=== PATIENT | female | born 1945 | race Caucasian/White ===

== ENCOUNTER 2017-03-03 21:40 | Inpatient (IN) | payer MEDICARE, OTHER ==
[~2017-03-03] VITALS: Ht 174 cm; Wt 68.8 kg
[~2017-03-03 21:40] MED LIST: FLUT16SP2 NS; HYDR12.55 PO; LEVO75TA4 PO; LOSA100T29 PO; PANT40TA3 PO; PRAV80TA2 PO; TRAZ-115 PO
[2017-03-03] MEDS ORDERED: 0.9% Sodium Chloride 1,000 ML IV ONE (21:44)
[2017-03-03 21:45] VITALS: BP 127/73; PULSE 87; RESP 18; O2SAT 97
[2017-03-03 21:54] LABS: BASOPHILS % (AUTO) 0.7 % (0-3); EOSINOPHILS % (AUTO) 5.4 % (0-5); MONOCYTES % (AUTO) 8.9 % (4-12); Mean Corpuscular Hemoglobin 27.5 pg (27.0-35.0); Mean Corpuscular Volume 88.6 fL (81-100); NEUTROPHILS % (AUTO) 66.6 % (40-74); Platelet Count 332 bil/L (150-400)
--- NOTE | 2017-03-03 21:59 | ED.REPORT ---
HPI-Trauma Minor / Fall Date of Service Mar 03, 2017 ED Provider: Katie Zavaleta MD Patient is a 71 year old female with a history of hypertension, high cholesterol and multiple other concerns who presents to the ED via EMS due to left hip pain status post mechanical ground level fall at home just prior to arrival when her walker slipped out from under her. Pain has been progressively worsening since the fall. She denies numbness, weakness, head trauma, or loss of consciousness.The patient denies taking any blood thinners. Nursing Notes Stated Complaint: GLF LEFT HIP PAIN Nursing Notes Reviewed: Yes Allergies: Coded Allergies: benazepril (Verified Allergy, Severe, 09/22/09) valsartan (Verified Allergy, Unknown, 03/03/17) verapamil (Verified Allergy, Unknown, 11/30/14) Scheduled Alendronate (Binosto) 70 Mg Tablet.eff 70 MG PO WEEKLY Takes on Sundays Amlodipine (Amlodipine) 5 Mg Tablet 5 MG PO QAM Gabapentin (Gabapentin) 300 Mg Capsule 300 MG PO HS Levothyroxine (Levothyroxine) 50 Mcg Tablet 50 MCG PO QAM Losartan Potassium (Losartan Potassium) 100 Mg Tablet 100 MG PO DAILY Potassium Chloride ER (Klor-Con 10) 10 Meq Tablet 10 MEQ PO DAILY Pravastatin (Pravastatin) 80 Mg Tablet 80 MG PO HS Tizanidine (Tizanidine) 2 Mg Capsule 4 MG PO HS Scheduled PRN Pantoprazole DR (Pantoprazole DR) 40 Mg Tablet.dr 40 MG PO DAILY PRN PRN For Dyspepsia or Heartburn Trazodone (Trazodone) 50 Mg Tablet 25 MG PO HS PRN PRN For Insomnia General Time Seen by MD: 21:42 Chief Complaint Fall, Other (Left Hip Pain) Hx Obtained From: Patient, EMS Arrived By: Ambulance Onset Occurred: Just prior to arrival Symptom Duration: Since onset Caused by: Fall on ground Context: Occurred at: Home injury Location: Hip left Leg left (upper femur) Quality: Painful Severity: Current: Moderate Severity: Maximum: Moderate Associated with: Denies: Headache, Loss of consciousness, Neck pain, Numb extremities, Weak extremity Pertinent Negative: Pt denies other symptoms Recent Healthcare: No recent hospitalization Similar Sx Previous: No Past Medical History Past Medical History hypertension high cholesterol eczema hypothyroid cataracts hiatal hernia Past Surgical History carotid artery surgery cardiac cath bilateral masectomy for breast nodules T&A Reports: Cholecystectomy, Hysterectomy Smoking History Current Every Day Smoker Ambulatory Status Independent Review of Systems Constitutional: Denies: Weakness - generalized Respiratory: Denies: Non-productive cough, Shortness of breath Musculoskeletal: Reports: Joint pain (Left Hip), Denies: Back pain, Extremity pain, Lumbar pain, Neck pain, Thoracic pain Neurologic: Denies: Change LOC, Headache, Numbness, Syncope Complete sys rev & neg: except as marked. Physical Exam Initial Vital Signs Vital Signs (First) Date Time Temp Pulse Resp B/P Pulse Ox O2 Delivery O2 Flow Rate FiO2 03/03/17 21:45 36.5 87 18 127/73 97 Room Air Initial VS: Reviewed General/Constitutional: Awake, Alert Neck: Atraumatic, Supple, Full range of motion Head / Eyes: Atraumatic, Normocephalic, PERRL, EOMI ENT: Atraumatic, Airway patent, Mucous membranes moist Respiratory / Chest: Atraumatic, Breath sounds NL, Breath sounds = bilat, No respiratory distress Cardiovascular: Heart rate NL, Regular rhythm, Heart sounds NL Abdomen: Atraumatic, Soft, Non-tender Back: Atraumatic, Full range of motion Upper Extremity / MS: Atraumatic, Full range of motion Lower Extremity / Pelvis / MS: Neurologic intact, Vascular intact Left Hip: Positive: Leg externally rotated, Leg shortened, ROM reduced... ( secondary to pain), Tenderness present... 2+ DP PT pulse Skin: Atraumatic, Warm, Dry Interpretation & Diagnostics Lab Results Interpretation Result Diagram: 03/04/17 0158 03/04/17 0158 Test 03/03/17 21:50 Prothrombin Time 11.4sec (8.1-12.5) Prothromb Time International Ratio 1.06ratio Activated Partial Thromboplast Time 26.6sec (22.8-33.0) Total Bilirubin 0.4mg/dL (0.0-1.2) Aspartate Amino Transf (AST/SGOT) 26U/L (0-50) Alanine Aminotransferase (ALT/SGPT) 13U/L (0-32) Alkaline Phosphatase 100U/L (25-165) Total Protein 7.9g/dL (6.4-8.4) Albumin 4.2g/dL (3.4-5.0) Hold He Top Tube Received (Received) ECG Interpretation ECG Interpretation: rate 72 T wave inversion aVR and V1 no ST elevation poor baseline Time: 22:46 Interpreted by: ED physician Normal ECG Interpretation: Normal sinus rhythm X-Ray Chest Interpretation Chest Xray Interpretation: no acute cardiopulmonary disease View: Portable, 1 view Interpretation / Wet Read by: Wet read ED physician X-Ray Interpretation Xray Interpretation: Impacted fracture of the left femoral neck. X-Ray Ordered: Pelvis, Hip left Interpretation / Wet Read by: Wet read ED physician Xray Interpretation: no fracture X-Ray Ordered: Femur right Interpretation / Wet Read by: Wet read ED physician Re-Eval/Medical Decision Med Decision/Clinical Course 71-year-old female with past medical history of hypertension and hyperlipidemia brought in by EMS with left hip pain after mechanical fall without head straight. Differential diagnosis includes but is not limited to hip fracture versus pelvic fracture versus femur fracture versus dislocation. Patient's x- rays concerning for femoral neck fracture. I discussed the case with orthopedics Dr. Rush and have admitted the patient to the hospitalist. She will be nothing by mouth after midnight and seen by orthopedics in the morning. Patient's labs are remarkable for baseline anemia, mild renal insufficiency, and no urinary tract infection. She is amenable to admission Source of Hx: Old records Re-Evaluation/Progress : Time of Eval: 23:00 Re-Evaluation/Progress Note: Rechecked patient. Discussed lab results and plan for admittance. The patient understands and agrees to admittance. Consultation #1: Referral / Consult Name: John Rush MD Consulted With: Orthopedic Call Returned at: 22:57 Low Pressure Boiler Operator: Will see patient Note: Consult with Dr. Rush, orthopedic, who agrees to see the patient in the morning. Consultation #2: Referral / Consult Name: Donald Iglesias MD Consulted With: Hospitalist Call Returned at: 23:00 Low Pressure Boiler Operator: Agrees with eval, Agrees with plan, Accepts admit Counseled Regarding: Diagnosis, Lab results, Need for admission Discharge & Departure Impression: Primary Impression: Fractured femoral neck Encounter type: initial encounter Laterality: left Disposition: ADMITTED TO HOSPITAL Discharge Condition All VS Reviewed: Yes Condition: Stable Referrals: Omar Hwang MD (PCP) Scribe Attestation Portions of this note were transcribed by Letty Singleton and Marcel Cha. IDr. Zavaleta personally performed the history, physical exam and medical decision- making; I reviewed and confirmed the accuracy of the information in the transcribed note. Signed by: Letty Singleton and Briseida Montejo, 03/03/17 and 00:02 copies to: Omar Hwang MD, Rebecca A MD Mar 03, 2017 21:59 Char Singleton Mar 03, 2017 22:53 MARCEL CHA Mar 04, 2017 00:03 X-Ray Chest Interpretation Chest Xray Interpretation: no acute cardiopulmonary disease View: Portable, 1 view Interpretation / Wet Read by: Wet read ED physician X-Ray Interpretation Xray Interpretation: Impacted fracture of the left femoral neck. X-Ray Ordered: Pelvis, Hip left Interpretation / Wet Read by: Wet read ED physician Xray Interpretation: no fracture X-Ray Ordered: Femur right Interpretation / Wet Read by: Wet read ED physician Re-Eval/Medical Decision Source of Hx: Old records Re-Evaluation/Progress : Time of Eval: 23:00 Re-Evaluation/Progress Note: Rechecked patient. Discussed lab results and plan for admittance. The patient understands and agrees to admittance. Consultation #1: Referral / Consult Name: John Rush MD Consulted With: Orthopedic Call Returned at: 22:57 Low Pressure Boiler Operator: Will see patient Note: Consult with Dr. Rush, orthopedic, who agrees to see the patient in the morning. Consultation #2: Referral / Consult Name: Donald Iglesias MD Consulted With: Hospitalist Call Returned at: 23:00 Low Pressure Boiler Operator: Agrees with eval, Agrees with plan, Accepts admit Counseled Regarding: Diagnosis, Lab results, Need for admission Discharge & Departure Impression: Primary Impression: Fractured femoral neck Encounter type: initial encounter Laterality: left Disposition: ADMITTED TO HOSPITAL Discharge Condition All VS Reviewed: Yes Condition: Stable Referrals: Omar Hwang MD (PCP) Briseida Attestation Portions of this note were transcribed by Letty Cha. IDr. Zavaleta personally performed the history, physical exam and medical decision- making; I reviewed and confirmed the accuracy of the information in the transcribed note. Signed by: Briseida Rosales, 03/03/17 and 00:02 copies to: Omar Hwang MD, Rebecca A MD Mar 03, 2017 21:59 Char Singleton Mar 03, 2017 22:53 MARCEL CHA Mar 04, 2017 00:03
[2017-03-03 22:15] LABS: INR 1.06 ratio
[2017-03-03] MEDS ORDERED: HYDROmorphone 1 mg/mL Inj IVPUSH ONE (22:45)
[2017-03-03] MEDS ORDERED: Ondansetron 2 mg/mL 2 mL Inj IVPUSH ONE ×2 (22:45→23:40)
[2017-03-03 23:00] VITALS: BP 109/46; PULSE 73; RESP 18; O2SAT 98
[2017-03-03] MEDS ORDERED: Alum-Mag Hydrox-Simeth 30 mL Suspension PO PRN (23:05)
[2017-03-03] MEDS ORDERED: Ondansetron 2 mg/mL 2 mL Inj IVPUSH PRN (23:05)
[2017-03-04] VITALS: BP 102/50; PULSE 72; RESP 16; O2SAT 97
[2017-03-04] MEDS ORDERED: TIZA2CAP9 PO (00:11)
[2017-03-04] MEDS ORDERED: LEVO50TA6 PO (00:11)
[2017-03-04] MEDS ORDERED: GABA-502 PO (00:11)
[2017-03-04] MEDS ORDERED: AMLO5TAB2 PO (00:11)
[2017-03-04] MEDS ORDERED: ALEN70TA51 PO (00:11)
[2017-03-04] MEDS ORDERED: PANT40TA3 PO (00:11)
[2017-03-04 00:45] VITALS: BP 131/63; PULSE 74; RESP 18; O2SAT 94
[2017-03-04 00:54] LABS: APPEARANCE,URINE CLEAR (CLEAR,HAZY); COLOR,URINE STRAW (YELLOW); OCCULT BLOOD,URINE NEGATIVE (NEGATIVE); UROBILINOGEN,URINE NORMAL (NORMAL)
[2017-03-04 00:56] VITALS: BP 127/48; PULSE 72; RESP 18; O2SAT 100
[2017-03-04] MEDS ORDERED: Alum-Mag Hydrox-Simeth 30 mL Suspension PO PRN (01:05)
[2017-03-04] MEDS ORDERED: Polyethylene Glycol (PEG) 17 Gm Powder PO PRN (01:05)
--- NOTE | 2017-03-04 01:14 | PCM.HPMED ---
Subjective Date of Service Mar 04, 2017 Primary Provider: Admitting Physician: Donald Iglesias MD Primary Care Physician: Susie Lucero MD Attending Physician: Donald Iglesias MD Chief Complaint: fall L hip pain History of Present Illness: 71yo lady with hx of htn, hld, cva, hypothyroidism, hld, intestinal angiodysplasia tripped and fell at home on L side. walks with walker. chronic L sided weakness from previous cva. no LOC. no lightheadedness, chest pain, dsypna. pain in L hip at worst severe improved now with pain medication. has rash on face for 7 weeks. seeing outpt dermatology she says they told her it is combination of eczema and seborrhea. Review of Systems: Positive Review of Symptoms mentioned and elaborated on in HPI. Head: Denies H/A, trauma, loss of consciousness. Eyes: Denies visual loss, diplopia. Ears: Denies: deafness, tinnitis, discharge, pain Nose: Denies discharge, obstruction, epistaxis Mouth: Denies sores, gingival bleeding, jaw pain Neck: Denies stiffness, issues swallowing. Respiratory: Denies dyspnea, cough, sputum. Cardiovascular:Denies CP, palpitations, orthopnea, peripheral edema Gastrointestinal: Denies melena, abd pain, n/v/d Genitourinary: Denies dysuria, discharge. Skin: see hpi Musculoskeletal:see hpi Neuro: Denies new numbness, tingling, weakness. Psyc: Currently denies feelings of anxiety, depression. Allergies Coded Allergies: benazepril (Verified Allergy, Severe, 09/22/09) valsartan (Verified Allergy, Unknown, 03/03/17) verapamil (Verified Allergy, Unknown, 11/30/14) Home Medications see med rec PMH see hpi Surgical History endoscopy, gallbladder, mastectomy Family History denies Social History Hx Alcohol Use: No Hx Substance Use: No Hx Tobacco Use: Yes (occasional ) Smoking Status: Current Every Day Smoker Exam Vital Signs Vital Sign - Last Date Time Temp Pulse Resp B/P Pulse Ox O2 Delivery O2 Flow Rate FiO2 03/04/17 00:56 72 18 127/48 100 Room Air 03/03/17 21:45 36.5 Intake and Output 03/03/17 03/03/17 03/04/17 Cumulative From/Thru 15:00 23:00 07:00 03/03/17 21:45 - 03/03/17 22:34 Intake Total 1000 ml 1000 ml Balance 1000 ml 1000 ml Intake IV Total 1000 ml 1000 ml Exam General: No acute distress. Awake, alert. Head: Normocephalic, atraumatic. Eyes: White sclera. Conjunctiva non-injected. Mouth & Throat: No Bleeding. No erythema, lesions, exudates visualized. Neck: No tender adenopathy. Trachea midline. Respiratory: Clear to auscultation bilaterally. Symmetric chest expansion. Regular work of breathing without use of accessory muscles. Cardiovascular: S1, S2. Regular rate and rhythm without murmurs, rubs or gallops. Pulses 2+ equal bilaterally. Abdomen: Normal bowel sounds x4 quadrants. Soft, non-tender, non-distended. Extremities:tenderness L hip. LLE shortened. Skin: facial erythema most pronounced along cheeks, Neurologic: Awake, alert, oriented x3. 4/5 strength L upper and lower extrem, No new focal deficits. Psychiatric: Appropriate mood and affect. Cooperative. Lab and Diagnostics Result Diagram: 03/03/17214903/03/172149 Assessment & Plan -- L hip fx -- mechanical fall pain control, ivf. orthopedic evaluation in am. -- facial rash obtain outside dermatology records in am. -- htn -- hld -- hx of cva -- hypothroidism -- hld -- hx of gi angiodysplasia medical managment as tolerated -- f/e/n: npo -- dvt prophylaxis: hold for now in case of procedure in am. Dipso: Admit to inpt with expected length of stay > 2 midnights. Donald Iglesias MD Mar 04, 2017 01:14
[2017-03-04] MEDS: Ondansetron 2 mg/mL 2 mL Inj IVPUSH PRN ×2 (01:33→22:43)
[2017-03-04] MEDS: 0.9% Sodium Chloride 1,000 ML IV SCH ×3 (01:33→21:05)
[2017-03-04] MEDS ORDERED: POTA10TA7 PO (01:48)
--- NOTE | 2017-03-04 02:03 | NUR ---
Admission to 1004 Pt arrived alert and fully oriented, moved to bed with slider board. Reports pain 8/10, medicated with modest improvement, ice applied; difficult to find a position for leg which is less painful. IV fluids infusing, freire patent. NPO for expected surgery. [place] alarm engaged for safety. Oriented to room, call light, hospital routines, plan of care; hourly rounding ongoing.
[2017-03-04 02:11] LABS: BASOPHILS % (AUTO) 0.2 % (0-3); EOSINOPHILS % (AUTO) 1.8 % (0-5); MONOCYTES % (AUTO) 7.9 % (4-12); Mean Corpuscular Hemoglobin 27.3 pg (27.0-35.0); Mean Corpuscular Volume 89.7 fL (81-100); NEUTROPHILS % (AUTO) 82.8 % (40-74); Platelet Count 228 bil/L (150-400)
[2017-03-04 02:33] LABS: Magnesium 1.9 mg/dL (1.6-2.6)
[2017-03-04] MEDS: HYDROmorphone 0.5 mg/0.5 mL iSecure Syringe IVPUSH PRN ×4 (03:55→22:21)
--- NOTE | 2017-03-04 05:18 | NUR ---
Pain Pain not well controlled with morphine, changed to Dilaudid with improved pain management. Ice along hip and groin; assisted with repositioning for comfort and skin care. Pt able to move very well, difficult to find a position that relieved severe pain. Hourly rounding ongoing.
[2017-03-04 07:00] VITALS: BP 123/71; PULSE 89; RESP 20; O2SAT 94
[2017-03-04] MEDS ORDERED: HYDROmorphone 1 mg/mL Inj ONE ×2 (12:04→12:07)
[2017-03-04 12:48] VITALS: BP 98/66; PULSE 68; RESP 16; O2SAT 93
--- NOTE | 2017-03-04 14:19 | DRSVH ---
[facility] [address] [place] [address] Echocardiogram Report Name: CLAUDIA RODRIGUEZ Study Date: 03/04/2017 Height: 68 in Hospital Exam Location: [facility] Weight: 151 lb Gender: Female BSA: 1.8 m2 : 1945 Age: 71 yrs BP: 123/71 mmHg Reason For Study: Pre-surgical evaluation Ordering Physician: HOSPITALIST [facility] Performed By: Kiera Moreno Referring Physician: Susie Lucero Interpretation Summary Technically difficult study with limited visualization of the valves and LV. 1) Grossly, normal left ventricular size and systolic function (EF 65-70%). 2) Grossly, mild to moderately dilated right ventricle with normal systolic function. 3) No gross valvular disease. 4) Pulmonary hypertension present, estimated systolic pulmonary pressure of 45mmHg. 5) Compared to the prior echo done 07/27/2011, right ventricle size has increased from normal to mildly to moderately increased on today's study. Procedure: A two-dimensional transthoracic echocardiogram with color flow and Doppler was performed. The exam was technically difficult with limited visualization of cardiac structure and function. The patient was supine during the exam due to left hip fracture and could not follow breathing instructions. Comparison is made with the echocardiogram of 07/27/2011. The patient was in normal sinus rhythm during the exam. Left Ventricle: The left ventricle is grossly normal size. The ejection fraction is estimated to be 65-70%. Left ventricular systolic function is normal. Regional wall motion abnormalities cannot be excluded due to limited visualization. Assessment of diastolic parameters indicates a relaxation abnormality of the left ventricle, consistent with normal filling pressures. Right Ventricle: The right ventricle is mild to moderately dilated. The right ventricular systolic function is normal. Atria: The left atrium is not well visualized. Right atrium not well visualized. Mitral Valve: The mitral valve leaflets appear thickened, but open well. There is no mitral regurgitation noted. Aortic Valve: The aortic valve opens well. The aortic valve is trileaflet. No aortic regurgitation is present. Tricuspid Valve: The tricuspid valve leaflets are thin and pliable. There is mild tricuspid regurgitation. The right ventricular systolic pressure is estimated at 45 mmHg assuming a right atrial pressure of 8 mm Hg. Pulmonic Valve: The pulmonic valve is not well seen, but is grossly normal. There is a trace or physiologic amount of pulmonic regurgitation. Great Vessels: The aortic root is normal size. The ascending aorta is normal in size. The IVC is of normal diameter and collapses less than 50% with a sniff. This suggests a right atrial pressure of 8 mm Hg. Pericardium/ Pleura There is no pericardial effusion. MMode/2D Measurements & Calculations IVSd: 1.0 cm IVC diam: 1.6 cm LVOT diam: 2.0 cm Ao root diam: 2.4 cm Aortic Jxn: 2.0 cm asc Aorta Diam: 2.8 cm Doppler Measurements & Calculations MV E max hu MV E/A: 0.65 TR max hu MV dec time : 39.7 cm/sec Med Peak E' Hu : 301.9 cm/sec : 0.28 sec MV A max hu TR max PG : 60.8 cm/sec E/E' med: 8.6 : 36.5 mmHg MV P1/2t: 81.1 msec MV A dur: 0.13 sec PA V2 max : 81.6 cm/sec PA mean PG PA Accel Time MV P1/2t max hu PA V2 mean : 53.6 cm/sec MVA(P1/2t): 2.7 cm2 Reading Physician:02:18 PM
--- NOTE | 2017-03-04 14:38 | NUR ---
Social Work- Brief Note Data: EMR reviewed. Pt is a 71 year old female admitted 03/03/17 for left hip fracture. Pt to have surgery possibly today or tomorrow. Pt's insurance is [employer] and [employer]. Pt's PCP is Susie Lucero MD. SW attempted to see pt regarding discharge plan, pt was asleep. Pt did not awake to SW repeated attempts to speak with pt. Per chart review, pt resides at home alone. Pt has no DPOA on file, SW to follow up with pt regarding this. SW to follow up with pt regarding discharge plan. Plan: SW to speak with pt regarding discharge plan when pt is awake. KAIT Coto
--- NOTE | 2017-03-04 15:13 | DRSVH ---
PROCEDURE: US BILATERAL DUPLEX DOPPLER IMAGING OF THE CAROTIDS ([id number]) INDICATIONS: carotid stenosis stroke preop TECHNIQUE: Color and pulse Doppler interrogation was performed of both carotid systems, with image documentation and velocity measurements. COMPARISON: None. FINDINGS: All stenosis calculations are based on NASCET criteria. Right side: Brachial blood pressure: Because of an IV the right arm pressure was not obtained. Common carotid artery peak systolic velocity: 72 cm/sec. Internal carotid artery peak systolic velocity: 144 cm/sec is thought to be present but more proximal ly located not be identified. Either a thread of flow is present or this is an incorrect finding. Pre vious study showed lack of flow.. Internal carotid artery end diastolic velocity: 21 cm/sec. External carotid artery peak systolic velocity: 171.7 cm/sec. ICA/CCA peak systolic ratio: 1.7 or nonexistent.. Haji scale imaging description: Prominent irregular plaquing is present Vertebral artery: Flow direction is antegrade. Left side: Brachial blood pressure: 123/71 mm Hg. Common carotid artery peak systolic velocity: 159 cm/sec. Internal carotid artery peak systolic velocity: 319 cm/sec. Internal carotid artery end diastolic velocity: 123 cm/sec. External carotid artery peak systolic velocity: 229 cm/sec. ICA/CCA peak systolic ratio: 2.0. Haji scale imaging description: Moderate atherosclerotic plaquing is present. Percent internal carotid artery stenosis: The percent diameter stenosis is thought to be at the low e nd of the 70% or greater because of the peak systolic and end diastolic velocities.. Vertebral artery: Flow direction is antegrade. * . IMPRESSION: 1. On the left there is thought to be 70% plus stenosis at the origin of the internal carotid artery. 2. Probable occlusion of the internal carotid artery on the right versus possible nonvisualized threa d of flow with downstream antegrade flow the right internal carotid artery. This is felt to be less l ikely than occlusion. Dictated by: Bro Soto M.D. on 03/04/2017 at 14:56 Approved by: Bro Soto M.D. on 03/04/2017 at 15:12
--- NOTE | 2017-03-04 15:16 | DRSVH ---
PROCEDURE: X-RAY PELVIS, ONE OR TWO VIEWS ([id number]) INDICATIONS: fall TECHNIQUE: One view(s) of the pelvis acquired. COMPARISON: None. FINDINGS: Bones: There is an acute fracture of the femoral neck of the left femur with displacement of the dis sally femoral shaft and leg proximally with external rotation. Soft tissues: Visualized bowel gas pattern is normal. No suspicious soft tissue calcifications. IMPRESSION: Transfemoral neck fracture with displacement. Pelvic ring is thought to be intact. Dictated by: Bro Soto M.D. on 03/04/2017 at 15:14 Approved by: Bro Soto M.D. on 03/04/2017 at 15:15
--- NOTE | 2017-03-04 15:17 | DRSVH ---
PROCEDURE: X-RAY CHEST ONE VIEW, PORTABLE ([id number]) INDICATIONS: fall TECHNIQUE: One view of the chest was acquired. COMPARISON: None. FINDINGS: Surgical changes and devices: There are vascular clips in the right side of the neck inferiorly. Card iac monitor leads are seen over the chest. Lungs and pleura: No pleural effusions or pneumothorax. Lungs are clear. Mediastinum: Mediastinal contours appear normal. Heart size is normal. Bones and chest wall: No suspicious bony lesions. Overlying soft tissues appear unremarkable. IMPRESSION: Acute disease is not appreciated an AP supine chest. Dictated by: Bro Soto M.D. on 03/04/2017 at 15:15 Approved by: Bro Soto M.D. on 03/04/2017 at 15:15
--- NOTE | 2017-03-04 15:17 | DRSVH ---
PROCEDURE: X-RAY LEFT FEMUR, TWO VIEWS ([id number]) INDICATIONS: hip pain TECHNIQUE: 2 views of the femur were acquired. COMPARISON: None. FINDINGS: Bones: No fractures or dislocations. No suspicious bony lesions. Soft tissues: No suspicious soft tissue calcifications or masses. IMPRESSION: No fracture of the infratrochanteric region of the left femur is seen. Dictated by: Bro Soto M.D. on 03/04/2017 at 15:15 Approved by: Bro Soto M.D. on 03/04/2017 at 15:16
--- NOTE | 2017-03-04 15:18 | DRSVH ---
PROCEDURE: X-RAY LEFT HIP COMPLETE, MINIMUM TWO VIEWS ([id number]) INDICATIONS: hip pain TECHNIQUE: 2 views of the hip were acquired. COMPARISON: None. FINDINGS: Bones: There is an acute fracture of the left femoral neck with displacement of the leg proximally an d with external rotation. No suspicious bony lesions. The visualized pelvic ring appears intact. Soft tissues: No suspicious soft tissue calcifications or masses. IMPRESSION: Acute femoral neck fracture with displacement. Dictated by: Bro Soto M.D. on 03/04/2017 at 15:16 Approved by: Bro Soto M.D. on 03/04/2017 at 15:17
[2017-03-04] MEDS ORDERED: HYDROmorphone 0.5 mg/0.5 mL iSecure Syringe IVPUSH PRN (15:50)
--- NOTE | 2017-03-04 16:07 | CONS ---
[address] [address] CONSULTATION REPORT PATIENT: CLAUDIA RODRIGUEZ : 1945 MR#: [id number] ADMIT: 03/03/2017 JOB ID: [id number] ORTHOPEDIC INPATIENT CONSULTATION: DATE OF SERVICE: 03/04/2017 CPT CODE: 53840-47, decision for surgery. 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 The patient sustained a displaced left femoral neck fracture. The patient denied any acute shortness of breath or any dizziness prior to her fall. She normally walks with a walker due to chronic low back pain. She has had chronic weakness in the left upper and left lower extremity since her stroke in June 2016 with her left leg being weaker than the left upper extremity but still not a dense hemiplegia. The patient was treated at [facility] [place] in [place] when she had her stroke. Evidently she had significant carotid artery stenosis. She has had a prior carotid endarterectomy eight years ago, but still ended up having a stroke this past year. ALLERGIES: 1. BENAZEPRIL. 2. VALSARTAN. 3. VERAPAMIL. PRIOR SURGERIES: Endoscopy, cholecystectomy and a mastectomy. FAMILY HISTORY: Denies any significant family history. SOCIAL HISTORY: The patient occasionally smokes. She does not drink alcohol. The question is whether she smokes daily or intermittently. REVIEW OF SYSTEMS: HEENT: No headache or blurring of vision. Respiratory: No shortness of breath. Cardiovascular: No chest pain. GI: No acute nausea or vomiting. : No dysuria. Musculoskeletal: Pain in the left hip. Also has chronic weakness left upper and lower extremity and also has chronic low back pain. Psychiatric: No anxiety or depression. Hematologic: No easy bleeding or bruising. Integumentary: Does have evidence for eczema. Additional medical problems include hypercholesterolemia and hiatal hernia as well as cataracts. ADDITIONAL PRIOR SURGERIES: Patient has had carotid artery, cardiac cath, bilateral mastectomy for breast nodules, tonsillectomy, cholecystectomy and hysterectomy. MEDICATIONS: Include alendronate, amlodipine, gabapentin, levothyroxine, losartan, potassium chloride, pravastatin, and tizanidine. PRN medications include trazodone and pantoprazole. PHYSICAL EXAMINATION: 173 cm, 68.8 kg female. Temperature 36.5, pulse is 68, respirations 16, blood pressure runs between 123/71 and 98/66, pulse ox 93-97 on room air. The patient is alert and oriented. She has clinical evidence for eczema particularly over her face. The patient has weakness in the left upper and lower extremity chronically from a prior stroke in June 2016. She is able to move the upper and lower extremity but she does have weakness. Peripheral pulses are intact. Sensory appears to be grossly intact. She has pain with any motion of the left hip. The left leg is shortened and rotated. LABORATORY AND IMAGING DATA: X-rays show that she has a displaced left femoral neck fracture. Labs include a CBC that was initially 7000 white count, hemoglobin 10.6, hematocrit 34.1, repeated on the with a white count 9500, hemoglobin 9.5, hematocrit 31.2. Neutrophils slightly elevated 82.8%, lymphocytes 7.1% slightly low. Platelet count adequate between 332,000 initially and 228,000 repeat today. Chemistry: Sodium 136, potassium 4.4, chloride 104, CO2 20, BUN 20, creatinine 1.15. Random glucose 126, calcium 7.6, magnesium 1.9. PT 11.4, INR 1.06, PTT 26.6. Urinalysis 1.010 specific gravity, clear, 0-5 white cells, and a few bacteria. X-rays of the femur, chest and pelvis were all done. The patient also had a carotid ultrasound Doppler that was done today. The patient has 70% stenosis on the left internal carotid artery. She has probable occlusion of the right internal carotid artery versus possible nonvisualized thread of flow downstream. The patient has significant carotid artery stenosis. Chest x-ray shows no acute disease. IMPRESSION: Displaced left femoral neck fracture. Severe carotid artery stenosis. The patient has 70% occlusion of the left carotid artery and what was thought to be occlusion of the internal carotid artery on the right. PLAN: I will discuss the medical baseline for this patient with Anesthesiology. The goal would be to be able to perform a bipolar hemiarthroplasty on this patient. She certainly is at significant risk for severe cerebral occlusion of her carotid arteries for having another stroke. I have explained the risks for bleeding, infection, pain, and stiffness, possibility for damage to surrounding neurovascular structures, potential for dislocation or fracture below the prostheses or cracking of the femur with placement of the component. The patient is also aware of the potential for DVT, pulmonary emboli, [place], and additional stroke. Surgical consent has been signed. Will proceed with surgery if we have medical clearance on March 05, 2017. ADDITIONAL INFORMATION: After further review of the patient's carotid ultrasound, it does appear that she has complete stenosis on the right internal carotid and 70+ stenosis on the left internal carotid. This certainly puts her at very high risk for having another stroke intraoperatively or perioperatively. I do not feel it is in the patient's best interest to try and proceed with any surgical intervention for prosthetic arthroplasty on that left hip on the weekend with a skeleton crew. I have discussed the case with Anesthesia, and they agree. The daughter has also requested that she would like to have the patient actually transferred to [place] at [facility] where she was treated before. I have contacted. Dr. Adhikari, an internal hospitalist that is taking care of the patient, and indicated the patient's desire and the patient's family's desires for transfer. If he could orchestrate a transfer, that might be the best option for the patient. If not and the patient does stay here, then the earliest any procedure would be done would be on a Monday, and this could be done with Dr. Antonino Ennis, from an orthopedic standpoint, but we would have to have also approval from Anesthesia with the severity of her carotid artery stenosis. Any potential drop in blood pressure intraoperatively could certainly put her at a very high risk for a stroke and particular since the left hip is the fractured hip, and the procedure is usually done with the left hip up and the right hip down, necessitating that the heart be pumping against gravity. Will just have the hospitalist alert [place] and he may also check with anesthesiologist as the anesthesiologist may also need to speak with someone in [place]. The patient will not have anything done surgically here tomorrow. I will contact her daughter and give her this information. Again, I am not sure if anything needs to be done from a vascular standpoint with those severe carotid artery stenosis prior to contemplating any acute prosthetic replacement on the hip. CC: [facility] CC: John Rush M.D. Addenda added by LONA 03/06/17 at 8:18am MTDD
--- NOTE | 2017-03-04 18:17 | NUR ---
Pain/sedation/family Patient with uncontrolled pain this am on 0.5 mg Dilaudid ivp x 2. Dr notified and Dilaudid dose changed so 1 mg Dilaudid given which decreased pain but increased sedation. Patient does awaken to voice and touch , nods head to questions but does fall back to sleep. 02-3l while asleep to maintain sats > 92 . Patients daughter called today and was requesting patient be transferred to [facility] for treatment as they know her history there. I informed hospitalist and orthopedic surgeon of this who have now spoken to daughter regarding this matter as of yet no transfer plan made. Patient had Echo and carotid Doppler done and shows significant stenosis so surgeon has concerns.
[2017-03-04 20:16] VITALS: BP 131/59; PULSE 81; RESP 16; O2SAT 94
[2017-03-05] VITALS (10 sets, daily range): BP systolic 108–166; BP diastolic 56–179; PULSE 65–80; RESP 16–20; O2SAT 93–99
[2017-03-05] MEDS: HYDROmorphone 0.5 mg/0.5 mL iSecure Syringe IVPUSH PRN ×3 (00:26→13:40)
--- NOTE | 2017-03-05 05:00 | NUR ---
Pain management/ IV site Pain unmanageable on 1 mg of Dilaudid, 1.5mg administered after two attempts and patient able to fall asleep with out c/o pain and respirations stable. Original IV site became symptomatic therefore removed, new IV placed in ac of same arm (right). c/o of nausea resolved with single dose of antiemetic.
[2017-03-05] MEDS: 0.9% Sodium Chloride 1,000 ML IV SCH ×3 (07:47→20:52)
[2017-03-05] MEDS ORDERED: Pantoprazole 40 mg ER24 Tablet PO PRN (08:05)
[2017-03-05] MEDS ORDERED: ALENDRONATE 70 MG PO SCH (08:30)
--- NOTE | 2017-03-05 09:19 | PCM.PNORTH ---
Subjective Date of Service: Mar 05, 2017 Visit Information: Reason for Visit Left Hip Fracture Surgery/Surgery Date Post-Op Day # Date of Admission: Mar 03, 2017 at 23:20 Hospital Day # Subjective Patient is complaining of inability to see me and is not sure on which side of the room my voice is coming from. She states she is not having any pain. Nursing has noticed that she complains of swallowing problem. Postop General: No Shortness of Breath, No Chest Pain Objective Exam Objective Patient laying in bed. Patient appears to be confused at times during my exam. Nursing and hospitalist team note a change in mentation and new onset difficulty with swallowing. Vital Signs and I/O Vital Sign - Last Date Time Temp Pulse Resp B/P Pulse Ox O2 Delivery O2 Flow Rate FiO2 03/05/17 08:56 36.6 72 18 118/75 93 Room Air Intake and Output 03/04/17 03/04/17 03/05/17 Cumulative From/Thru 15:00 23:00 07:00 03/03/17 21:45 - 03/05/17 01:01 Intake Total 0 ml 0 ml 1413 ml Output Total 50 ml 400 ml 450 ml Balance -50 ml -400 ml 963 ml Intake Oral 0 ml 0 ml 0 ml IV Total 1413 ml Output Urine Total 50 ml 400 ml 450 ml # Bowel Movements 0 0 Result Diagram: 03/04/17 0158 03/04/17 0158 General Appearance: Cooperative, No Acute Distress Extremities: Distal Pulses Palpable, Warm, No Edema, No Compartment Syndrom Noted, Thigh & Calf Soft/Nontender Postop Sensory Motor: Distal Motor Intact (After much prompting, patient was able to move ankle and toes, however she is weak), Movement in Toes, Distal Sensation Intact, NVI Distally Assessment & Plan Impression Left hip fracture Problems: Plan Patient has a left hip fracture, however, she does not appear to be stable enough for surgery at this time. It is concerning that she is having changes in mentation as well as difficulty swallowing. She was also complaining of loss of vision during my exam. Concern for new onset stroke after having a stroke last year. Hospitalist team is conducting imaging to determine the cause of the mental change. If patient is deemed stable enough to proceed with surgery, she will likely go tomorrow with Dr. Ennis and should be NPO past midnight. Eladia FajardoC Mar 05, 2017 09:19
--- NOTE | 2017-03-05 09:47 | NUR ---
Evaluation completed. Please go to "Notes" then click on "Assessments and Notes" (bottom left corner of screen). Then select appropriate discipline tab on top of screen.
--- NOTE | 2017-03-05 09:59 | NUR ---
Neuro Per noc shift report, pt was somewhat sedated with IV dilaudid. This am, found pt to have change in neuro status. L weakness r/t previous CVA. Speech slurred, gaze and full body slant to right side, needs cues to swallow. Checked with yesterday day shift RN who stated that pt did seem less alert and L side weaker compared to yesterday and that she had no problems eating or drinking yesterday evening. MD is aware and assessed pt at bedside. Stat MRI ordered; nursing grounds crew supervisor aware. NPO pending swallow evaluation. Holding am PO medications per MD verbal order. Continue to monitor closely.
--- NOTE | 2017-03-05 10:17 | PCM.PNMED ---
Subjective Date of Service Mar 05, 2017 Subjective patient acted differently this AM had severe left side neglect, left sided weakness which was different from yesterday followed simple commands, was able to converse, thinks that her left side is weaker than yesterday STAT MRI was ordered Ms. Jess Pelaez was contacted, informed about the situation, still wants to transfer to [place] at [facility] Exam Vital Signs Vital Sign - Last Date Time Temp Pulse Resp B/P Pulse Ox O2 Delivery O2 Flow Rate FiO2 03/05/17 08:56 36.6 72 18 118/75 93 Room Air Intake and Output 03/04/17 03/04/17 03/05/17 Cumulative From/Thru 15:00 23:00 07:00 03/03/17 21:45 - 03/05/17 01:01 Intake Total 0 ml 0 ml 1413 ml Output Total 50 ml 400 ml 450 ml Balance -50 ml -400 ml 963 ml Intake Oral 0 ml 0 ml 0 ml IV Total 1413 ml Output Urine Total 50 ml 400 ml 450 ml # Bowel Movements 0 0 Exam NAD, comfortably laying down on the bed no JVD, MMM, no LAD RRR, nl s1, s2 no mrg CTAB, no w,c S,ND,NT,normoactive BS+ warm, no edema, pulses 2/2 neuro: followed simple commands, asymmetric face,decreased left side nasal fold , left side visual and somatosensory neglect, more Rt 5/5 Lt motor 2/5 IVs and Medications Medications Reviewed: Medications were reviewed in detail Lab and Diagnostics Result Diagram: 03/04/1715703/04/17157 Assessment & Plan acute, active #acute worsening of Left sided deficit, developed 03/04-03/05, strongly suggestive of new onset stroke vs poor perfusion due to relatively low BP, Repeat Carotid US 03/04 showed unchanged from prior findings-70% occ in LCA, 100%RCA, which also suggestive of possibly transient poor perfusion contributed to current s/s. Per Record from [facility], patient was admitted from07/21-08/19/16, had recurrent right frontoparietal multifocal CVA, s/p recurrent CVA in the right alex radiata and right frontal lobe, resultant left hemiparesis and neglect. Patient was recommended to stop all BP meds, recommended aspirin, patient improved subsequently, had rehab course until admission -ordered MR stroke protocol STAT, -strict NPO, -continue neurochecks q1h -will consider aspirin PA, statin po -patient is stable for transfer, [place] [facility] [place] will maximize medical tx, consider consult [place] neuro as needed. #L hip fx, s/p mechanical fall, POA, -tentative plan for surgery by tomorrow per Ortho department. -will likely to delay surgery given acute findings above. #HTN, POA, will hold off BP meds to increase perfusion, it seems that BP meds were held in acute post stroke course then resumed later by PCP. chronic, stable HLD CKD anemia hemochromatosis hx of Crohn's dz, AVM of SB, angiodysplasia, pt did have colonoscopy due to GIB , underwent Argon laser tx at last hospitalization, monitor stools, h/h closely Rt carotid occ chronic back pain osteoporosis depression dispo: likely 3-4more days, pending dvt ppx: SCD diet: NPO Full Code contact: Jess Pelaez, Time spent 35min Rodrigo Adhikari MD Mar 05, 2017 10:17
[2017-03-05] MEDS ORDERED: 0.9% Sodium Chloride 1,000 ML IV ONE (10:25)
[2017-03-05] MEDS ORDERED: Heparin 5,000 Unit/mL Inj SUBQ SCH (12:00)
--- NOTE | 2017-03-05 12:28 | NUR ---
Off unit Pt off unit at this time for MRI
[2017-03-05] MEDS ORDERED: Acetaminophen IV 1,000 MG in IV Premix 1 EACH IV ONE (14:00)
--- NOTE | 2017-03-05 17:51 | NUR ---
Social Work: Initial Assessment Data & Assessment: Survey Crew Chief met with patient and patient's friend, Petra [phone], at bedside to complete initial assessment, SW role reviewed and discharge planning discussed. Patient's PCP is Dr. Susie Sandoval. Patient's insurance is Medicare and [employer]. Patient does not have VA or LTC benifits. Patient re-admit score is two no risk. Patient reported that her NOK/DPOA is her daughter Jess Pelaez. SW requested a copy of patient's Advance Directive/DPOA. Patient lives home alone, but she has a private pay caregiver in the home on TTS from 10-1 that prepares meals, helps with shower and complete chores. Patient reports that she drives as long as she has someone else in the car with her. Patient has had [facility] in the past and stated that is HH is needed at discharge she wants [facility]. Patient has been to [facility] for SNF services. SW will continue to follow patient and rule out if HH will be needed at discharge. Patient's friend Petra, , will provide transport upon discharge. SW will continue to follow. Plan: Home with private pay caregivers and r/o HH. Patient's friend Petra, , will provide transport upon discharge.SW will continue to follow and assist patient throughout stay. Elizabeth Daily LMSW, TEE Addendum: 03/05/17 at 1802 by ELIZABETH DAILY SS Amended: Links added.
[2017-03-05] MEDS ORDERED: 0.9% Sodium Chloride 500 ML IV ONE (18:20)
[2017-03-05] MEDS: Acetaminophen IV 1,000 MG in IV Premix 1 EACH IV PRN (19:22)
[2017-03-05] MEDS: Heparin 5,000 Unit/mL Inj SUBQ SCH (20:56)
--- NOTE | 2017-03-05 22:20 | NUR ---
Transfer to [facility]CC Condition change resulting in MD's request patient be moved to PCC. Patient alert and oriented able to make needs known. requested Pain medication. Report given to RN noted that neuro checks every hr and BP maintained above 140's. Daughter and Patient aware of transfer and agreeable to this plan of action.
[2017-03-06] MEDS: Acetaminophen IV 1,000 MG in IV Premix 1 EACH IV PRN (00:58)
[2017-03-06] MEDS: Heparin 5,000 Unit/mL Inj SUBQ SCH ×3 (01:30→20:15)
--- NOTE | 2017-03-06 01:40 | NUR ---
PAIN/NEUROS Pt to [facility], A&O, left sided weakness unable to move arm or leg at time of exam, GCS 15. Pt c/o mild hip pain on arrival. Pt's pain increased and requested something stronger than IV Tylenol. Pt was given 5mg oxycodone. Pt was resting comfortably and showed no signs of pain, but when reassessed stated she was an 8/10 and the medication did nothing, then fell back asleep. Q1 hr neuro checks show no decline. Pt A&O, able to follow commands, PERRL, mumbled speech and severe left sided weakness.
[2017-03-06 02:52] LABS: BASOPHILS % (AUTO) 0.3 % (0-3); EOSINOPHILS % (AUTO) 5.7 % (0-5); MONOCYTES % (AUTO) 5.3 % (4-12); Mean Corpuscular Hemoglobin 27.3 pg (27.0-35.0); Mean Corpuscular Volume 90.5 fL (81-100); NEUTROPHILS % (AUTO) 79.5 % (40-74); Platelet Count 178 bil/L (150-400)
[2017-03-06 03:44] LABS: Magnesium 1.8 mg/dL (1.6-2.6); Phosphorus 1.9 mg/dL (2.5-4.9)
[2017-03-06 04:25] VITALS: BP 147/83; PULSE 66; RESP 17; O2SAT 96
--- NOTE | 2017-03-06 05:59 | DRSVH ---
PROCEDURE: MRI STROKE PROTOCOL ([id number]) Pre- and post-contrast brain MRI, non-contrast brain MR angiogram, pre- and postcontrast neck MR yusra ogram INDICATIONS: Acute worsening stroke lt sided weak TECHNIQUE: Brain: Noncontrast axial T1 spin echo, axial T2 fast spin echo, sagittal and axial FLAIR, coronal T2 fast spin echo, axial gradient echo, axial diffusion and ADC through the brain. After the administr ation of contrast, axial 3D VIBE of the cranial vasculature and brain. Brain MRA: Non-contrast 3-D time of flight MR angiogram, with multiple fuzrxwg-aovslopww-rcbqpxtvyq (MIP) reformats performed. Neck MRA: Axial and sagittal TruFISP through the neck. Coronal dynamic MR angiogram during administ ration of contrast in the arterial and venous phases, with 3-dimenstional kcufsor-kmqwkxdvt-obekqtsts n (MIP) reformats constructed from subtraction images. COMPARISON: [facility], CR, XR CHEST 1VW (PORTABLE), 03/03/2017, 21:53. [facility] [place] , , STROKE PROTOCOL (PNL), 05/03/2011, 14:08. [facility], US, US CAROTID DPL X DOPPLER BILAT, 03/04/2017, 11:12. FINDINGS: Image quality: Excellent. BRAIN: CSF spaces: Ventricles are normal in size and shape. Basal cisterns are patent. No extra-axial flu id collections. Brain: There are multiple foci of restricted diffusion involving the right frontoparietal lobe, as we ll as the posterior temporal lobe and occipital lobe, consistent with acute cerebral infarct. Foci of restricted diffusion are also seen in the right caudate and globus pallidus, consistent acute/subacu te infarct. There is a small focus of restricted diffusion in the right cerebellar hemisphere consist ent with acute infarct. There is equivocal increased signal on diffusion-weighted images in the left cerebellar hemisphere. No intracranial bleeds or mass effects. Brainstem appears normal. There are multifocal old infarcts in the right paraventricular and deep subcortical white matter. No abnormal intracranial enhancemen t. Skull and face: Calvarial marrow signal is normal. Orbits appear normal. Sinuses: Sinuses and mastoids are clear. BRAIN MR ANGIOGRAM: Anterior circulation: The right intracranial internal carotid is occluded. The left intracranial int ernal carotid artery is patent and normal in size and enhancement. The flow within the paired anteri or cerebral arteries is normal and symmetric. There is diminished flow to the right middle cerebral a rtery. The left middle cerebral artery demonstrates normal caliber and enhancement. The anterior com municating artery is seen. No stenoses, occlusions, or aneurysms. Posterior circulation: The visualized portions of the vertebral arteries demonstrate normal caliber, and join to form a normal appearing basilar artery. The flow within the posterior cerebral arteries is normal and symmetric. No stenoses, occlusions, or aneurysms. NECK MR ANGIOGRAM: Carotids: Great vessels demonstrate a conventional anatomy as they arise from the aortic arch. The origins of the common carotid arteries appear patent. The calibers and courses of both common caroti d arteries are normal. The bifurcation regions appear normal bilaterally. There is complete occlusi on of the right internal carotid artery 7 mm distal to its origin. There is diffuse irregularity in t he proximal right internal carotid artery with approximately 50% stenosis. Posterior circulation: The origins of the vertebral arteries appear patent. More superior portions of both vertebral arteries demonstrate normal course and caliber, and join to form a normal appearing basilar artery. Miscellaneous: Subclavian arteries appear patent. Pre-contrast images through the neck show no soft tissue abnormalities. There are small bilateral pleural effusions, right greater than left. IMPRESSION: BRAIN MRI: 1. Extensive acute cerebral infarction involving the right frontoparietal lobe, as well as posterior temporal lobe and occipital lobe. Foci of acute/subacute infarcts are also seen in the right caudate and globus pallidus. 2. A small acute infarct in the right cerebellum. 3. Multiple old infarcts in the right periventricular and deep subcortical white matter. BRAIN MR ANGIOGRAM: 1. Occlusion of the right internal carotid artery. 2. Diminished flow to the right middle cerebral artery territory compared to the contralateral left s catrachito. 3. Patent vertebrobasilar system. NECK MR ANGIOGRAM: 1. Occlusion of the right internal carotid artery 7 mm above its origin. 2. Approximately 50% stenosis in the proximal right internal carotid artery. 3. Patent vertebral arteries results significant stenosis. The estimate of stenosis included in the report of the imaging study was calculated using the NASCET method Dictated by: Zaid De Leon M.D. on 03/05/2017 at 13:50 Transcribed by: LUCILA on 03/05/2017 at 14:22 Approved by: Zaid De Leon M.D. on 03/05/2017 at 16:11
[2017-03-06] MEDS: 0.9% Sodium Chloride 1,000 ML IV SCH ×2 (07:28→22:49)
[2017-03-06 07:29] VITALS: BP 156/78; PULSE 69; RESP 16; O2SAT 99
--- NOTE | 2017-03-06 09:38 | PCM.PNORTH ---
Subjective Date of Service: Mar 06, 2017 Visit Information: Reason for Visit Left Hip Fracture Surgery/Surgery Date Post-Op Day # Date of Admission: Mar 03, 2017 at 23:20 Hospital Day # 3 Subjective Patient is sitting up in bed. she states she had some bleeding this morning, ? nosebleed. She is not sure. the left hip is comfortable at rest but painful with any movement. Postop General: No Shortness of Breath, No Chest Pain Objective Exam Objective Patient is seen sitting up in bed. She has dried blood around the mouth. Vital Signs and I/O Vital Sign - Last Date Time Temp Pulse Resp B/P Pulse Ox O2 Delivery O2 Flow Rate FiO2 03/06/17 07:29 Supplement Oxygen 03/06/17 07:29 36.8 69 16 156/78 99 2.00 Intake and Output 03/05/17 03/05/17 03/06/17 Cumulative From/Thru 15:00 23:00 07:00 03/03/17 21:45 - 03/06/17 06:23 Intake Total 400 ml 871 ml 1100 ml 3784 ml Output Total 450 ml 400 ml 1125 ml 2425 ml Balance -50 ml 471 ml -25 ml 1359 ml Intake Oral 400 ml 0 ml 0 ml 400 ml IV Total 871 ml 1100 ml 3384 ml Output Urine Total 350 ml 400 ml 1125 ml 2325 ml Emesis 100 ml 100 ml # Bowel Movements 0 0 Lab & Micro Results Laboratory Tests Test 03/06/17 02:30 White Blood Count 7.2th/mm3 (3.8-10.1) Red Blood Count 3.37mil/mm3 (3.90-5.20) Hemoglobin 9.2g/dL (12.0-15.6) Hematocrit 30.5% (35.0-46.0) Mean Corpuscular Volume 90.5fL (81-100) Mean Corpuscular Hemoglobin 27.3pg (27.0-35.0) Mean Corpuscular Hemoglobin Concent 30.2% (32.0-37.0) Red Cell Distribution Width 19.0% (12.3-15.4) Platelet Count 178bil/L (150-400) Neutrophils (%) (Auto) 79.5% (40-74) Lymphocytes (%) (Auto) 8.8% (14-46) Monocytes (%) (Auto) 5.3% (4-12) Eosinophils (%) (Auto) 5.7% (0-5) Basophils (%) (Auto) 0.3% (0-3) Sodium Level 140mEq/L (134-144) Potassium Level 3.6mEq/L (3.5-5.2) Chloride Level 109mEq/L (97-108) Carbon Dioxide Level 17mmol/L (18-29) Blood Urea Nitrogen 22mg/dL (8-27) Creatinine 1.17mg/dL (0.57-1.00) Estimat Glomerular Filtration Rate 65mL/min (>59) Glucose Level 99mg/dL (60-99) Calcium Level 7.4mg/dL (8.5-10.1) Phosphorus Level 1.9mg/dL (2.5-4.9) Magnesium Level 1.8mg/dL (1.6-2.6) Total Bilirubin 0.3mg/dL (0.0-1.2) Aspartate Amino Transf (AST/SGOT) 641U/L (0-50) Alanine Aminotransferase (ALT/SGPT) 649U/L (0-32) Alkaline Phosphatase 123U/L (25-165) Total Protein 5.6g/dL (6.4-8.4) Albumin 3.1g/dL (3.4-5.0) Result Diagram: 03/06/1722903/06/17229 General Appearance: Alert, Oriented X3, Cooperative, No Acute Distress Extremities: Distal Pulses Palpable, No Compartment Syndrom Noted, Tenderness/ Swelling Noted (at left hip as expected) Postop Sensory Motor: No Movement (left lower extremity) Assessment & Plan Impression Left hip fracture Problems: Plan Patient is not a surgical candidate due to recent stroke and significant carotid stenosis Physical therapy: Bed to chair transfers only Weightbearing: Non weight bearing left LE Pain Management: Tylenol VTE Prophylaxis: Sub-Q Heparin (Unfractionated), Other (aspirin) Lyla Rucker PA-C Mar 06, 2017 09:38
[2017-03-06 10:05] VITALS: PULSE 67
--- NOTE | 2017-03-06 11:42 | NUR ---
NUTRITION ASSESSMENT Assess: 71 YO F admitted for left hip fracture. Pt is now now a surgical candidate due to acute stroke. Pt has been on Stimulation diet/poor PO intake X 3 days. PMHX: HTN, HLD, CVA, hypothyroid, intestinal angiodysplasia DIET: Stimulation, no liquid. ST. PO intake: 0-bites. LABS: Cr 1.17, Ca 7.4, Phos 1.9, AST 641, ALT 649, Alb 3.1 MEDICATIONS: Reviewed. GI: No BM noted. SKIN: No issues noted. ANTHROPOMETRICS: Wt: 68.8 kg, BMI 22.7 kg/m2, Admit wt: 68.8 kg. ESTIMATED NEEDS: Calories: 4022-0639 kcal/day (25-30 kcal/kg BW) Protein: 69-83 g/day (1.0-1.2 g/kg BW) NUTRITION DIAGNOSIS: 1) Inadequate oral intake related to decreased ability to consume sufficient energy as evidenced by poor PO intake X 3 days. 2) Chew/Swallow difficulty related to acute stroke as evidenced by need for stimulation diet. INTERVENTION: 1) Diet advancement per speech therapy. 2) If diet unable to advance past stimulation in the next 2-4 days consider nutrition support. MONITOR/EVALUATE: PO intake, diet advance/tolerance, labs, GI, nutrition status. Follow per moderate nutrition risk guidelines.
[2017-03-06 12:07] VITALS: BP 179/81; PULSE 73; RESP 16; O2SAT 100
--- NOTE | 2017-03-06 14:44 | NUR ---
Pt. not available. Surgery in talking with pt and family. Pt. may DC to [facility] but will follow up as able. Alessio Thurman, OTR/L
--- NOTE | 2017-03-06 16:19 | NUR ---
To CT angio pt transported via bed to CT for angiogram. pt alert and oriented. 3L o2. freire draining. telemetry informed. Addendum: 03/06/17 at 1837 by INDRA PUGH RN returned to room 2001 at about 1640. Pt alert and oriented. Neuro unchanged.
[2017-03-06 16:34] VITALS: BP 167/70; PULSE 81; RESP 18; O2SAT 100
--- NOTE | 2017-03-06 16:55 | PCM.PNMED ---
Subjective Date of Service Mar 06, 2017 Subjective Patient laying comfortably in bed. Speech mumbled. Left upper extremity weakness.C/o hip pain. Exam Vital Signs Vital Sign - Last Date Time Temp Pulse Resp B/P Pulse Ox O2 Delivery O2 Flow Rate FiO2 03/06/17 16:34 37.5 81 18 167/70 100 Nasal Cannula 3.00 Intake and Output 03/05/17 03/05/17 03/06/17 Cumulative From/Thru 15:00 23:00 07:00 03/03/17 21:45 - 03/06/17 06:23 Intake Total 400 ml 871 ml 1100 ml 3784 ml Output Total 450 ml 400 ml 1125 ml 2425 ml Balance -50 ml 471 ml -25 ml 1359 ml Intake Oral 400 ml 0 ml 0 ml 400 ml IV Total 871 ml 1100 ml 3384 ml Output Urine Total 350 ml 400 ml 1125 ml 2325 ml Emesis 100 ml 100 ml # Bowel Movements 0 0 Exam General: NAD, comfortably laying down on the bed Neck/HEENT: No JVD, dry mucous membranes, pink periorbital rash Heart: Regular rate and rhythm, no m/r/g/ Lungs: CTAB b/l, no wheezing Abdomen: S,ND,NT,normoactive BS+ Extremities: Warm, no edema, pulses 2/2 Neuro: Follows simple commands, asymmetric face, decreased left side nasal fold , left side visual neglect, no tongue deviation, severe weakness LUE Lab and Diagnostics Result Diagram: 03/06/17 0230 03/06/17 0230 X-Rays, CTs and MRIs MRI STROKE PROTOCOL IMPRESSION: BRAIN MRI: 1. Extensive acute cerebral infarction involving the right frontoparietal lobe, as well as posterior temporal lobe and occipital lobe. Foci of acute/subacute infarcts are also seen in the right caudate and globus pallidus. 2. A small acute infarct in the right cerebellum. 3. Multiple old infarcts in the right periventricular and deep subcortical white matter. BRAIN MR ANGIOGRAM: 1. Occlusion of the right internal carotid artery. 2. Diminished flow to the right middle cerebral artery territory compared to the contralateral left side. 3. Patent vertebrobasilar system. NECK MR ANGIOGRAM: 1. Occlusion of the right internal carotid artery 7 mm above its origin. 2. Approximately 50% stenosis in the proximal right internal carotid artery. 3. Patent vertebral arteries results significant stenosis. Dictated and approved by: Zaid De Leon M.D. on 03/05/2017 at 13:50 ADDENDUM This report includes an Addendum and supersedes previous reports for this exam. IMPRESSION: BRAIN MRI: 1. Extensive acute cerebral infarction involving the right frontoparietal lobe, as well as posterior temporal lobe and occipital lobe. Foci of acute/subacute infarcts are also seen in the right caudate and globus pallidus. 2. A small acute infarct in the right cerebellum. 3. Multiple old infarcts in the right periventricular and deep subcortical white matter. BRAIN MR ANGIOGRAM: 1. Occlusion of the right internal carotid artery. 2. Diminished flow to the right middle cerebral artery territory compared to the contralateral left side. 3. Patent vertebrobasilar system. NECK MR ANGIOGRAM: 1. Occlusion of the right internal carotid artery 7 mm above its origin. 2. Approximately 50% stenosis in the proximal left internal carotid artery. 3. Patent vertebral arteries results significant stenosis. Dictated and approved by: Zaid De Leon M.D. on 03/05/2017 at 13:50 US BILATERAL DUPLEX DOPPLER IMAGING OF THE CAROTIDS IMPRESSION: 1. On the left there is thought to be 70% plus stenosis at the origin of the internal carotid artery. 2. Probable occlusion of the internal carotid artery on the right versus possible nonvisualized thread of flow with downstream antegrade flow the right internal carotid artery. This is felt to be less likely than occlusion. Dictated and approved by: Bro Soto M.D. on 03/04/2017 at 14:56 X-RAY LEFT HIP COMPLETE IMPRESSION: Acute femoral neck fracture with displacement. Dictated and approved by: Bro Soto M.D. on 03/04/2017 at 15:16 Assessment & Plan Gail Pelaez is a 71 -year-old female with history of hypertension, hyperlipidemia, hypothyroidism and intestinal angiodysplasia who is admitted foe left hop fracture and new CVA. Hospital day 3. 1. CVA, acute, not present on admission. Active -acute worsening of Left sided deficit, developed 03/04-03/05, strongly suggestive of new onset stroke vs poor perfusion due to relatively low BP, Repeat Carotid US 03/04 showed unchanged from prior findings--70% occ in LCA, 100%RCA, which also suggestive of possibly transient poor perfusion contributed to current s/ s. Per Record from [place], patient was admitted from07/21-08/19/16, had recurrent right frontoparietal multifocal CVA, s/p recurrent CVA in the right alex radiata and right frontal lobe, resultant left hemiparesis and neglect. Patient was recommended to stop all BP meds, recommended aspirin, patient improved subsequently, had rehab course until admission. -MR stroke revealed extensive acute cerebral infarction involving the right frontoparietal lobe, as well as posterior temporal lobe and occipital lobe and small acute infarct in the right cerebellum. There is occlusion of the right internal carotid artery and diminished flow to the right middle cerebral artery territory compared to the contralateral left side. There is also approximately 50% stenosis in the proximal right internal carotid artery. -Continue Aspirin 325 mg and Pravastatin 80 mg daily -Continue neurochecks every 1-2 hours -case discussed with surgery Dr. Lai Rogers. neurology Dr. De La Torre and at [facility] , no indication for emergent carotid endarterectomy for now per [facility] neurology . Dr Ac will discuss case with intervention neurology and get back to me if elective intervention is indicated prior to her hip surgery.Also tried to transfer to [facility] in [place] per daughter request since she had hospitalization there for her prior stroke for continuity of care, no bed available .will await Dr Ac's rec -Continue telemetry -Neck/head CTA with brain perfusion LICA 60-70 % stenosis,NADYA occluded 2. Left hip fracture s/p mechanical fall, present on admission. Active -tentative plan for surgery by when clinically stable 3. Transaminitis, acute, not present on admission. Active -Etiology unknown -DC Tylenol -Dilaudid PRN -Monitor labs -Abdominal US if not improved #HTN, POA, will hold off BP meds to increase perfusion, it seems that BP meds were held in acute post stroke course then resumed later by PCP. chronic, stable HLD CKD anemia hemochromatosis hx of Crohn's dz, AVM of SB, angiodysplasia, pt did have colonoscopy due to GIB , underwent Argon laser tx at last hospitalization, monitor stools, h/h closely Rt carotid occ chronic back pain osteoporosis depression contact: Jess Pelaez, Pain Evaluation: Adequate Pain Control GI Prophylaxis: Proton Pump Inhibitor VTE Prophylaxis: Sub-Q Heparin (Unfractionated), SCDs, Other (aspirin) Resuscitation Status: CPR: Attempt Resuscitation Attending Statement The patient was seen and examined together with Dr. Batista on 03/06/2017 and I agree with the history, exam and plan as outlined in the note above. Alivia Batista DO Mar 06, 2017 16:55 Chase Hurd MD Mar 07, 2017 06:29
--- NOTE | 2017-03-06 17:14 | DRSVH ---
PROCEDURE: CT ANGIO HEAD AND NECK (P) INDICATIONS: acute cva,estimate right ICA stenosis TECHNIQUE: Pre-contrast 4.5 mm thick sections acquired from the foramen magnum to the vertex. After the adminis tration of intravenous contrast, 1 mm thick sections acquired from the aortic arch through the Telida of Yuan. Post-contrast 4.5 mm thick sections then re-acquired from the foramen magnum to the vert ex. 3-dimensional egifaes-jryxmtlli-vqlaposnby (MIP) and/or volume rendering reformats were acquired of the central intracranial vasculature and neck separately. For radiation dose reduction, the foll owing was used: automated exposure control, adjustment of mA and/or kV according to patient size. COMPARISON: [facility], US, US CAROTID DPLX DOPPLER BILAT, 03/04/2017, 11:12. [facility], MR, MR STROKE PROTOCOL, 03/05/2017, 12:47. FINDINGS: Image quality: Excellent. BRAIN: CSF spaces: Ventricles are normal in size and shape. Basal cisterns are patent. No extra-axial flu id collections. Brain: No midline shift. No intracranial bleeds or masses. Subacute infarcts involving the right fr ontal, right parietal, right temporal and right occipital lobes are stable compared to prior MRI. Sma ll, subacute infarcts involving the right globus pallidus and right caudate head are stable compared to MRI. Skull and face: Calvarium and facial bones appear intact, without suspicious lesions. Orbits appear normal. Sinuses: Sinuses and mastoids are clear. HEAD CT ANGIOGRAPHY: Anterior circulation: Right internal carotid artery is occluded. There is reconstitution of flow in t he supraclinoid segment of the right internal carotid artery presumably via retrograde flow in the ri ght ophthalmic artery. Atherosclerotic calcifications noted in the cavernous and supraclinoid segment s of the left internal carotid artery which caused multifocally focal moderate and high-grade stenose s. The flow within the middle cerebral arteries is normal and symmetric. The anterior communicating artery is seen. No aneurysms are seen. Posterior circulation: Visualized portions of the vertebral arteries demonstrate normal caliber, and join to form a normal appearing basilar artery. Flow within the posterior cerebral arteries is norm al and symmetric. No aneurysms are seen. NECK CT ANGIOGRAPHY: Carotid system: The great vessels demonstrate a conventional anatomy as they arise from the aortic a rch. Atherosclerotic calcifications noted in the origin of the brachiocephalic artery which causes a moderate approximately 50% stenosis of the vessel. Atherosclerotic ossification noted in the origin o f the left common carotid artery which causes high grade, approximately 80% stenosis of the vessel. T he right internal carotid artery is occluded at its origin. Atherosclerotic irregularity noted in the origin of the left internal carotid artery which causes approximately 60-70 % stenosis of the vessel . Posterior circulation: The origins of the vertebral arteries both appear widely patent. The more hines perior extracranial portions of both vertebral arteries also demonstrate normal courses and calibers. They join to form a normal appearing basilar artery. Soft tissues: Visualized neck soft tissues demonstrate no suspicious abnormalities. Small right-side d pleural effusion is noted. Bones: No suspicious bony lesions. Visualized cervical spine appears normally aligned. IMPRESSION: 1. 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 There is reconstitution of flow in the hines praclinoid segment of the right internal carotid artery presumably via retrograde flow in the right o phthalmic artery. 2. Approximately 60-70% stenosis of the origin of the left internal carotid artery. 3. Moderate, approximately 50% stenosis of the origin of the brachiocephalic artery. 4. High-grade, approximately 80% stenosis of the origin of left common carotid artery. 5. No hemodynamically significant stenosis involving the vertebrobasilar system. 6. Multiple, subacute infarcts involving the right frontal lobe, right parietal lobe, right temporal lobe, right occipital lobe, the right caudate head and the right globus pallidus. 7. No intracranial hemorrhage. 8. No significant intracranial mass effect or midline shift. Dictated by: Elyssa Brizuela MD, PhD on 03/06/2017 at 17:00 Approved by: Elyssa Brizuela MD, PhD on 03/06/2017 at 17:13
[2017-03-06 19:50] VITALS: BP 180/77; PULSE 80; RESP 20; O2SAT 95
[2017-03-06] MEDS: HYDROmorphone 1 mg/mL Inj IVPUSH PRN (20:05)
[2017-03-07] VITALS (10 sets, daily range): BP systolic 138–174; BP diastolic 63–89; PULSE 61–80; RESP 15–20; O2SAT 97–100
[2017-03-07 02:04] LABS: BASOPHILS % (AUTO) 0.3 % (0-3); EOSINOPHILS % (AUTO) 6.3 % (0-5); Mean Corpuscular Hemoglobin 27.4 pg (27.0-35.0); Mean Corpuscular Volume 89.2 fL (81-100); NEUTROPHILS % (AUTO) 78.6 % (40-74); Platelet Count 179 bil/L (150-400)
[2017-03-07] MEDS: Heparin 5,000 Unit/mL Inj SUBQ SCH ×3 (03:10→21:07)
[2017-03-07] MEDS: HYDROmorphone 1 mg/mL Inj IVPUSH PRN ×4 (03:18→22:01)
[2017-03-07 03:22] LABS: Magnesium 1.7 mg/dL (1.6-2.6); Phosphorus 1.8 mg/dL (2.5-4.9)
--- NOTE | 2017-03-07 03:52 | NUR ---
PAIN Patient complains of pain to Left hip, provided dilaudid with good relief. Patient turned [id number] and heels and elbows floated on pillows. Patient's left arm remains flaccid, arm elevated on pillow and some passive range of motion provided. She has been able to sleep more comfortably tonight, per patient report. Neuro checks remain unchanged with Left arm flaccid, patient able to wiggle her toes but unable to move her Left leg. Patient reports normal sensation in all limbs. Will continue to monitor closely.
[2017-03-07] MEDS ORDERED: Sodium Phosphate Inj 20 MEQ in Dextrose 5% 250 ML IV ONE (07:30)
--- NOTE | 2017-03-07 08:06 | PCM.PNORTH ---
Subjective Date of Service: Mar 07, 2017 Visit Information: Reason for Visit Left Hip Fracture Surgery/Surgery Date Post-Op Day # Date of Admission: Mar 03, 2017 at 23:20 Hospital Day # 4 Subjective Patient more clear headed today than when I previously saw her (on 03/05/17) but does not remember our first meeting. She states she is having hip pain but understands that she have been postponing surgery for safety reasons. Postop General: No Shortness of Breath, No Chest Pain Pain Management: PO, IV Push Objective Exam Objective Patient laying in bed Vital Signs and I/O Vital Sign - Last Date Time Temp Pulse Resp B/P Pulse Ox O2 Delivery O2 Flow Rate FiO2 03/07/17 04:27 61 03/07/17 03:13 36.9 20 150/72 97 Nasal Cannula 3.00 Intake and Output 03/06/17 03/06/17 03/07/17 Cumulative From/Thru 15:00 23:00 07:00 03/03/17 21:45 - 03/07/17 06:57 Intake Total 760 ml 1160 ml 5704 ml Output Total 1050 ml 1400 ml 2150 ml 7025 ml Balance -1050 ml -640 ml -990 ml -1321 ml Intake Oral 360 ml 760 ml IV Total 760 ml 800 ml 4944 ml Output Urine Total 1050 ml 1400 ml 2150 ml 6925 ml Emesis 100 ml # Bowel Movements 0 Lab & Micro Results Laboratory Tests Test 03/07/17 02:00 White Blood Count 9.1th/mm3 (3.8-10.1) Red Blood Count 3.61mil/mm3 (3.90-5.20) Hemoglobin 9.9g/dL (12.0-15.6) Hematocrit 32.2% (35.0-46.0) Mean Corpuscular Volume 89.2fL (81-100) Mean Corpuscular Hemoglobin 27.4pg (27.0-35.0) Mean Corpuscular Hemoglobin Concent 30.7% (32.0-37.0) Red Cell Distribution Width 18.6% (12.3-15.4) Platelet Count 179bil/L (150-400) Neutrophils (%) (Auto) 78.6% (40-74) Lymphocytes (%) (Auto) 8.6% (14-46) Monocytes (%) (Auto) 6.0% (4-12) Eosinophils (%) (Auto) 6.3% (0-5) Basophils (%) (Auto) 0.3% (0-3) Sodium Level 141mEq/L (134-144) Potassium Level 3.9mEq/L (3.5-5.2) Chloride Level 106mEq/L (97-108) Carbon Dioxide Level 22mmol/L (18-29) Blood Urea Nitrogen 15mg/dL (8-27) Creatinine 0.83mg/dL (0.57-1.00) Estimat Glomerular Filtration Rate 97mL/min (>59) Glucose Level 136mg/dL (60-99) Calcium Level 7.6mg/dL (8.5-10.1) Phosphorus Level 1.8mg/dL (2.5-4.9) Magnesium Level 1.7mg/dL (1.6-2.6) Total Bilirubin 0.3mg/dL (0.0-1.2) Aspartate Amino Transf (AST/SGOT) 435U/L (0-50) Alanine Aminotransferase (ALT/SGPT) 633U/L (0-32) Alkaline Phosphatase 140U/L (25-165) Total Protein 5.6g/dL (6.4-8.4) Albumin 2.9g/dL (3.4-5.0) Result Diagram: 03/07/17 02003/07/17 020 General Appearance: Alert, Oriented X3, Cooperative, No Acute Distress Extremities: Distal Pulses Palpable, Warm, No Compartment Syndrom Noted Catheters: Urethral 2 Way Alvarado Assessment & Plan Impression Left hip fracture Problems: Plan Patient is not a surgical candidate due to recent stroke and significant carotid stenosis. She will need medical clearance before considering surgery. When she is medically cleared, she will need to be NPO past midnight the day prior to surgery. We will also need to her to stop anticoagulation to avoid blood loss perioperatively. When patient is cleared, please reach out to me or the on-call surgeon to discuss plans to move forward with surgery. Physical therapy: Bed to chair transfers only Weightbearing: Non weight bearing left LE VTE Prophylaxis: Sub-Q Heparin (Unfractionated), SCDs, Other Resuscitation Status: CPR: Attempt Resuscitation Eladia Fajardo PA-C Mar 07, 2017 08:06
[2017-03-07] MEDS: 0.9% Sodium Chloride 1,000 ML IV SCH ×2 (09:00→19:40)
--- NOTE | 2017-03-07 10:22 | NUR ---
Evaluation completed. Please go to "Notes" then click on "Assessments and Notes" (bottom left corner of screen). Then select appropriate discipline tab on top of screen.
--- NOTE | 2017-03-07 10:55 | NUR ---
Pharmacy/Medications Spoke with Pharmacist Davion Robles, this morning about 0830 regarding her Tylenol. Noted that she had oral Tylenol ordered, but her AST/ALT lab levels were significantly increased from a couple of days ago. Also, per Dr. Batista's note yesterday the plan was to discontinue the Tylenol due to "Transaminitis, acute, not present on admission. Active. -Etiology unknown -DC Tylenol -Dilaudid PRN -Monitor labs -Abdominal US if not improved" Davion Moore discontinued it. Also, discussed the one time dose of IV Sodium Phosphate that was due at 0730 and had not arrived from the pharmacy yet. He said he would look into it. It arrived and was just given a few minutes ago. Care continues. Addendum: 03/07/17 at 1102 by CINDY SIEGEL RN Double checked IV compatibility of Sodium Phosphate and Normal Saline with Pharmacist Ora as [employer] said the two had not been tested together. She said they were compatible. Care continues.
--- NOTE | 2017-03-07 11:46 | PCM.DIMED ---
Alivia Batista DO 03/07/17 1146: Discharge Instructions Date of Service Mar 07, 2017 Dates of Hospitalization Mar 03, 2017 at 23:20 Discharge Diagnosis Discharge Diagnosis 1. CVA, acute, not present on admission. Active 2. Left hip fracture s/p mechanical fall, present on admission. Active 3. Transaminitis, acute, not present on admission. Active Diet Other (Diet stimulation) Activity Other (CVA rehabilitational occupational therapy ) Call your provider Fever or Chills, Shortness of breath, Bleeding, Chest pain, Vomitting, Excessive diarrhea, Weakness (unilateral) Patient Instructions Follow-up Provider: Susie Lucero MD Follow-up with PCP in: Other (Upon discharge ) Additional Information Patient is being transferred to [facility] in [place] for neurology evaluation due to her new CVA during her resent hospitalization at [facility] and left hip fracture once clinically stable. Chase Hurd MD 03/07/17 1409: Discharge Instructions Patient Instructions patient will be transferred to tertiary care center .patient needs coordinated neurology and orthopedics care due to acute stroke and acute hip fracture to optimize her neurological status and decide when safely to intervene on hip fracture. Patient has also been admitted to [facility] on her prior stroke . Alivia Batista DO Mar 07, 2017 11:46 Chase Hurd MD Mar 07, 2017 14:09
--- NOTE | 2017-03-07 11:54 | NUR ---
Social Work Note: Continued Discharge Planning Data& Assessment: Per MD pt is being transferred to [facility]. SW available for any questions, concerns or needs for pt and pt family. No other discharge needs identified. Plan: Pt being transferred to [facility]. KAIT Redd Addendum: 03/07/17 at 1549 by NICK ENG SS STEPHANIE provided pt daughter with SNF list for [facility] and [facility] Guide book per her request. Pt daughter wants to prepare for pt discharge from [facility] back to [facility] when she is medically ready. Pt daughter denies any other needs. SW to continue to follow if any needs arise. KAIT Redd
--- NOTE | 2017-03-07 11:55 | PCM.DC.MED ---
Discharge Summary Date of Service Mar 07, 2017 Dates of Hospitalization Date of Hospital Admission Mar 03, 2017 at 23:20 Date of Discharge: Mar 07, 2017 Providers: Admitting Physician: Donald Iglesias MD Primary Care Physician: Susie Lucero MD Attending Physician: Donald Iglesias MD Diagnosis at Time of Discharge Diagnosis at Time of Discharge 1. CVA, acute, not present on admission. Active 2. Left hip fracture s/p mechanical fall, present on admission. Active 3. Transaminitis, acute, not present on admission. Active 4. Hypertension, present on admission. Active Consultations maltese neurology Dr Ac,telemedicine neurology Dr De La Torre vascular surgery Dr Bacon also consulted by Dr Rogers Procedures XRay, CTs & MRIs CT ANGIO HEAD AND NECK IMPRESSION: 1. 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 There is reconstitution of flow in the supraclinoid segment of the right internal carotid artery presumably via retrograde flow in the right ophthalmic artery. 2. Approximately 60-70% stenosis of the origin of the left internal carotid artery. 3. Moderate, approximately 50% stenosis of the origin of the brachiocephalic artery. 4. High-grade, approximately 80% stenosis of the origin of left common carotid artery. 5. No hemodynamically significant stenosis involving the vertebrobasilar system. 6. Multiple, subacute infarcts involving the right frontal lobe, right parietal lobe, right temporal lobe, right occipital lobe, the right caudate head and the right globus pallidus. 7. No intracranial hemorrhage. 8. No significant intracranial mass effect or midline shift. Dictated and approved by: Elyssa Brizuela MD, PhD on 03/06/2017 at 17:00 MRI STROKE PROTOCOL IMPRESSION: BRAIN MRI: 1. Extensive acute cerebral infarction involving the right frontoparietal lobe, as well as posterior temporal lobe and occipital lobe. Foci of acute/subacute infarcts are also seen in the right caudate and globus pallidus. 2. A small acute infarct in the right cerebellum. 3. Multiple old infarcts in the right periventricular and deep subcortical white matter. BRAIN MR ANGIOGRAM: 1. Occlusion of the right internal carotid artery. 2. Diminished flow to the right middle cerebral artery territory compared to the contralateral left side. 3. Patent vertebrobasilar system. NECK MR ANGIOGRAM: 1. Occlusion of the right internal carotid artery 7 mm above its origin. 2. Approximately 50% stenosis in the proximal right internal carotid artery. 3. Patent vertebral arteries results significant stenosis. Dictated and approved by: Zaid De Leon M.D. on 03/05/2017 at 13:50 ADDENDUM This report includes an Addendum and supersedes previous reports for this exam. IMPRESSION: BRAIN MRI: 1. Extensive acute cerebral infarction involving the right frontoparietal lobe, as well as posterior temporal lobe and occipital lobe. Foci of acute/subacute infarcts are also seen in the right caudate and globus pallidus. 2. A small acute infarct in the right cerebellum. 3. Multiple old infarcts in the right periventricular and deep subcortical white matter. BRAIN MR ANGIOGRAM: 1. Occlusion of the right internal carotid artery. 2. Diminished flow to the right middle cerebral artery territory compared to the contralateral left side. 3. Patent vertebrobasilar system. NECK MR ANGIOGRAM: 1. Occlusion of the right internal carotid artery 7 mm above its origin. 2. Approximately 50% stenosis in the proximal left internal carotid artery. 3. Patent vertebral arteries results significant stenosis. Dictated and approved by: Zaid De Leon M.D. on 03/05/2017 at 13:50 US BILATERAL DUPLEX DOPPLER IMAGING OF THE CAROTIDS IMPRESSION: 1. On the left there is thought to be 70% plus stenosis at the origin of the internal carotid artery. 2. Probable occlusion of the internal carotid artery on the right versus possible nonvisualized thread of flow with downstream antegrade flow the right internal carotid artery. This is felt to be less likely than occlusion. Dictated and approved by: Bro Soto M.D. on 03/04/2017 at 14:56 X-RAY LEFT HIP COMPLETE IMPRESSION: Acute femoral neck fracture with displacement. Dictated and approved by: Bro Soto M.D. on 03/04/2017 at 15:16 Brief History Per Admitting Physician: Donald Iglesias MD: Chief Complaint: Fall L hip pain History of Present Illness: 71yo lady with hx of htn, hld, cva, hypothyroidism, hld, intestinal angiodysplasia tripped and fell at home on L side. walks with walker. chronic L sided weakness from previous cva. no LOC. No lightheadedness, chest pain, dsypna. pain in L hip at worst severe improved now with pain medication. She has rash on face for 7 weeks. seeing outpt dermatology she says they told her it is combination of eczema and seborrhea. Hospital Course Gail Pelaez is a 71 -year-old female with history of hypertension, hyperlipidemia, hypothyroidism and intestinal angiodysplasia who is admitted foe left hop fracture and new CVA. 1. CVA, acute, not present on admission. Active -Acute worsening of Left sided deficit, developed 03/04-03/05, strongly suggestive of new onset stroke vs poor perfusion due to relatively low BP, Repeat Carotid US 03/04 showed unchanged from prior findings--70% occ in LCA, 100%RCA, which also suggestive of possibly transient poor perfusion contributed to current s/ s. Per Record from [place], patient was admitted from07/21-08/19/16, had recurrent right frontoparietal multifocal CVA, s/p recurrent CVA in the right alex radiata and right frontal lobe, resultant left hemiparesis and neglect. Patient was recommended to stop all BP meds, recommended aspirin, patient improved subsequently, had rehab course until admission. -MR stroke revealed extensive acute cerebral infarction involving the right frontoparietal lobe, as well as posterior temporal lobe and occipital lobe and small acute infarct in the right cerebellum. There is occlusion of the right internal carotid artery and diminished flow to the right middle cerebral artery territory compared to the contralateral left side. There is also approximately 50% stenosis in the proximal right internal carotid artery. -Continued Aspirin 325 mg and Pravastatin 80 mg daily -Continued neurochecks every 1-2 hours -case discussed with surgery Dr. Lai Rogers. neurology Dr. De La Torre and at [facility] , no indication for emergent carotid endarterectomy for now per [facility] neurology . Dr Ac discussed case with intervention neurology no emergent intervention is indicated..will transfer to [facility] in [place] fo coordinated care of neurology and orthopedics. she had hospitalization there for her prior stroke -Continued telemetry -Neck/head CTA with brain perfusion LICA 60-70 % stenosis,NADYA occluded 2. Left hip fracture s/p mechanical fall, present on admission. Active -surgery on hold due to acute stroke -transfer to [facility] for coordinated care 3. Transaminitis, acute, not present on admission. Active -Etiology unknown -DC Tylenol -Dilaudid PRN -Monitor labs -Abdominal US if not improved 4. Hypertension, present on admission. Active -Hold off BP meds to increase perfusion. Chronic, stable HLD CKD anemia hemochromatosis hx of Crohn's dz, AVM of SB, angiodysplasia, pt did have colonoscopy due to GIB , underwent Argon laser tx at last hospitalization, monitor stools, h/h closely Rt carotid occ chronic back pain osteoporosis depression Contact: Jess Pelaez, Exam Vital Signs (Last) Date Time Temp Pulse Resp B/P Pulse Ox O2 Delivery O2 Flow Rate FiO2 03/07/17 08:37 Supplement Oxygen 03/07/17 08:37 36.8 69 16 162/71 98 2.00 Exam General: Ill-appearing elderly female comfortably laying down in no acute distress HEENT: Normocephalic, atraumatic. External ears without defect. Pupils equal, round, and reactive to light. Anicteric sclerae, moist conjunctivae. Falls View periorbital erythema/rash Neck: Supple. No lymphadenopathy or thyromegaly. Cardiovascular: Regular rate and rhythm. Pulmonary: Clear to auscultation bilaterally with no crackles, wheezes, or rhonchi. Abdomen: Bowel tones present. Soft, nontender, nondistended. Extremities: No clubbing, cyanosis, edema, or lymphadenopathy appreciated. Skin: Normal temperature, turgor, and texture; no rash, ulcers, or subcutaneous nodules appreciated. Neurological: Follows simple commands, asymmetric face, decreased left side nasal fold, left side visual neglect, no tongue deviation, severe weakness in left upper and lower extremity Psychiatric: Alert and oriented to person, place, and time. Test 03/03/17 21:50 03/04/17 00:30 03/07/17 02:00 Prothrombin Time 11.4sec (8.1-12.5) Prothromb Time International Ratio 1.06ratio Activated Partial Thromboplast Time 26.6sec (22.8-33.0) Hold He Top Tube Received (Received) Urine Color Straw (YELLOW) Urine Appearance Clear (CLEAR,HAZY) Urine pH 7.0 (5.0-8.0) Urine Specific Logan 1.010 (1.003-1.035) Urine Protein Negativemg/dL (NEG,TRACE) Urine Glucose (UA) Negativemg/dL (NEGATIVE) Urine Ketones Negativemg/dL (NEGATIVE) Urine Occult Blood Negative (NEGATIVE) Urine Nitrite Negative (NEGATIVE) Urine Bilirubin Negative (NEGATIVE) Urine Urobilinogen Normalmg/dL (NORMAL) Urine Leukocyte Esterase Negative (NEGATIVE) Urine RBC 0-2/hpf (0-2) Urine WBC 0-5/hpf (0-5) Urine Epithelial Cells Occasional/hpf (NONE-MOD) Urine Crystals None seen (NONE SEEN) Urine Bacteria Few/hpf (NONE-FEW) Urine Hyaline Casts Rare/lpf (NONE) Urine Granular Casts None seen (NONE SEEN) Urine Waxy Casts None seen (NONE SEEN) Urine Red Blood Cell Casts None seen (NONE SEEN) Urine White Blood Cell Casts None seen (NONE SEEN) Urine Mucus None seen (None Seen) Urine Trichomonas None seen (NONE SEEN) Urine Yeast None (NONE SEEN) Urinalysis Comment None Urine Culture Reflexed Not indicated White Blood Count 9.1th/mm3 (3.8-10.1) Red Blood Count 3.61mil/mm3 (3.90-5.20) Hemoglobin 9.9g/dL (12.0-15.6) Hematocrit 32.2% (35.0-46.0) Mean Corpuscular Volume 89.2fL (81-100) Mean Corpuscular Hemoglobin 27.4pg (27.0-35.0) Mean Corpuscular Hemoglobin Concent 30.7% (32.0-37.0) Red Cell Distribution Width 18.6% (12.3-15.4) Platelet Count 179bil/L (150-400) Neutrophils (%) (Auto) 78.6% (40-74) Lymphocytes (%) (Auto) 8.6% (14-46) Monocytes (%) (Auto) 6.0% (4-12) Eosinophils (%) (Auto) 6.3% (0-5) Basophils (%) (Auto) 0.3% (0-3) Sodium Level 141mEq/L (134-144) Potassium Level 3.9mEq/L (3.5-5.2) Chloride Level 106mEq/L (97-108) Carbon Dioxide Level 22mmol/L (18-29) Blood Urea Nitrogen 15mg/dL (8-27) Creatinine 0.83mg/dL (0.57-1.00) Estimat Glomerular Filtration Rate 97mL/min (>59) Glucose Level 136mg/dL (60-99) Calcium Level 7.6mg/dL (8.5-10.1) Phosphorus Level 1.8mg/dL (2.5-4.9) Magnesium Level 1.7mg/dL (1.6-2.6) Total Bilirubin 0.3mg/dL (0.0-1.2) Aspartate Amino Transf (AST/SGOT) 435U/L (0-50) Alanine Aminotransferase (ALT/SGPT) 633U/L (0-32) Alkaline Phosphatase 140U/L (25-165) Total Protein 5.6g/dL (6.4-8.4) Albumin 2.9g/dL (3.4-5.0) Discharge Medications Discharge Medications Alendronate (Binosto) 70 Mg Tablet.eff 70 MG PO WEEKLY (Reported) Takes on Sundays Amlodipine (Amlodipine) 5 Mg Tablet 5 MG PO QAM (Reported) Aspirin (Aspirin) 325 Mg Tablet 325 MG PO DAILY Prescribed by: ALEXANDER HANSEN DO Gabapentin (Gabapentin) 300 Mg Capsule 300 MG PO HS (Reported) Levothyroxine (Levothyroxine) 50 Mcg Tablet 50 MCG PO QAM (Reported) Losartan Potassium (Losartan Potassium) 100 Mg Tablet 100 MG PO DAILY (Reported ) Potassium Chloride ER (Klor-Con 10) 10 Meq Tablet 10 MEQ PO DAILY (Reported) Pravastatin (Pravastatin) 80 Mg Tablet 80 MG PO HS (Reported) Tizanidine (Tizanidine) 2 Mg Capsule 4 MG PO HS (Reported) As needed Pantoprazole DR (Pantoprazole DR) 40 Mg Tablet.dr 40 MG PO DAILY PRN PRN For Dyspepsia or Heartburn (Reported) Trazodone (Trazodone) 50 Mg Tablet 25 MG PO HS PRN PRN For Insomnia (Reported) Followup Plan Disposition: transfer to [facility] Discharge Diet: Other (Diet stimulation) Discharge Activity: Other (CVA rehabilitational occupational therapy ) Follow-up Provider: Susie Lucero MD Follow-up with PCP in: Other (Upon discharge ) Time spent 55 minutes coordinating transfer Attending Statement The patient was seen and examined together with Dr. Hansen on 03/07/2017 and I agree with the discharge summary as outlined in the note above. copies to: Susie Lucero MD, Oksana S DO Mar 07, 2017 11:55 Chase Hurd MD Mar 07, 2017 20:17
[2017-03-07] MEDS ORDERED: ASPI325T32 PO (12:05)
--- NOTE | 2017-03-07 19:34 | NUR ---
Blood Pressure and Phosphate Spoke with Dr. Alanis about 1630 to notify him that she had completed her IV Phosphate bag and that there were no lab redraws ordered to check her levels. He said he would look into it and order labs for the morning. Discussed her blood pressure with Dr. Hurd this afternoon and he said to try and keep her systolic blood pressure between 140 and 150. Shelbie RADER on cage shift manager notified. Care continues.
--- NOTE | 2017-03-08 00:32 | CONS ---
[address] [address] CONSULTATION REPORT PATIENT: CLAUDIA RODRIGUEZ : 1945 MR#: [id number] ADMIT: 03/03/2017 JOB ID: [id number] DATE OF SERVICE: 03/07/2017 HISTORY OF PRESENT ILLNESS: This is a 71-year-old female. Surgery was initially postponed due to the fact that she had significant carotid artery stenosis and needed further evaluation. She did have carotid artery ultrasound performed, showing complete occlusion of the right carotid artery and 70+% occlusion on the left carotid artery on ultrasound. Anesthesia had concerns as well as I did about performing surgery on this very high risk surgical patient for potential stroke on a weekend with a skeleton crew. I did discuss this with her daughter. Initially, they were potentially wanting to be transferred up to [place] where she had been treated in the past for her prior stroke. The patient was evidently not transferred. The following day, on Monday, March 06, 2017, the patient was noted to be even more lethargic and clinically was having a stroke in motion. The patient had a large left-sided stroke affecting the left upper and lower extremity with significant weakness. She was started on stroke protocol and placed on a heparin drip. MRI was performed of the brain, indicating that she had an extensive acute cerebral infarction involving the right frontoparietal lobe as well as the posterior temporal lobe and occipital lobe, and additional infarcts seen in the right caudate and globus pallidus. There is also a small acute infarct in the right cerebellum. Brain angiogram and neck angiogram were performed, showing occlusion of the right internal carotid artery 7 mm above its origin and approximately 50% stenosis of the left internal carotid artery. The vertebral arteries appeared to be patent. CT angio of the head and neck were also performed. There was no midline shift in the brain. It was felt that she had a 60-70% stenosis of the origin of the left internal carotid artery on this study, 50% stenosis of the brachiocephalic artery, high-grade 80% stenosis of the origin of the left common carotid artery. Multiple subacute infarcts seen. No intracranial hemorrhage. There was no mass effect and no midline shift. These studies were evidently read by Vascular and/or Neurosurgery at [facility]. It was deemed that the patient was not a stable candidate for any surgical intervention at this time. I did discuss the case with Dr. Antonino Ennis, and he too agreed that the patient was not stable for any surgical intervention. I also discussed this with the patient's daughter. I told her I was not sure if the patient would be a candidate for any type of vascular procedure such as stenting or bypassing the occluded carotid arteries. I did explain to her that the patient could be mobilized out of bed to chair with comfort measures and pain medication as needed. Since she has significant weakness in the left lower extremity, she would not be a good surgical candidate for prosthetic replacement of the femoral head at this time. If, however, she does have some return of motor function in that left lower extremity, she might be a surgical candidate, but only after she had been stabilized and cleared by Vascular Surgery and/or Neurosurgery. I did explain to the daughter that there is a risk with any prosthetic that might be placed in an extremity with severe weakness that she could dislocate the prosthesis. The safest thing to do at this time is conservative care with no surgical intervention and see how the patient does with the rehabilitation. Again, she is at very high risk for even further stroke issues with the severe carotid artery stenosis. I did encourage the daughter to speak with the hospitalist, and she could also speak with Vascular Surgery perhaps down at the [facility] for further information. Again at this time, no surgical intervention is contemplated while the patient is currently anticoagulated for her recent stroke. Any further testing and/or evaluation or any potential procedures are still uncertain at this time. CC: AISHWARYA-Orthopedics CC: Glory Little
[2017-03-08 03:07] VITALS: BP 151/73; PULSE 67; RESP 20; O2SAT 99
[2017-03-08 04:17] VITALS: PULSE 78
[2017-03-08] MEDS: Heparin 5,000 Unit/mL Inj SUBQ SCH ×2 (04:24→14:03)
[2017-03-08] MEDS: 0.9% Sodium Chloride 1,000 ML IV SCH (05:05)
[2017-03-08 07:51] VITALS: BP 169/84; PULSE 64; RESP 16; O2SAT 100
[2017-03-08 08:02] LABS: BASOPHILS % (AUTO) 0.3 % (0-3); EOSINOPHILS % (AUTO) 12.3 % (0-5); MONOCYTES % (AUTO) 7.9 % (4-12); Mean Corpuscular Hemoglobin 27.3 pg (27.0-35.0); NEUTROPHILS % (AUTO) 67.4 % (40-74); Platelet Count 192 bil/L (150-400)
[2017-03-08] MEDS: HYDROmorphone 1 mg/mL Inj IVPUSH PRN ×2 (08:18→15:03)
[2017-03-08 08:34] LABS: Magnesium 1.4 mg/dL (1.6-2.6); Phosphorus 2.1 mg/dL (2.5-4.9)
[2017-03-08 08:45] VITALS: PULSE 60
--- NOTE | 2017-03-08 10:18 | NUR ---
[facility] Signed
[2017-03-08 10:30] VITALS: PULSE 64
--- NOTE | 2017-03-08 11:02 | NUR ---
NUTRITION FOLLOW-UP Assess: 71 YO F admitted for left hip fracture. Surgery on hold due to acute stroke. Pt was able to have her diet advanced to dysphagia mechanical yesterday. She is tolerating PO well at ~25-50% of meals. She has not had a BMx5 days. PMHX: HTN, HLD, CVA, hypothyroid, intestinal angiodysplasia DIET: Dysphagia Mechanical, NT, PO 25-50% LABS: K 3.1, Glu 104, Ca 8.1, Phos 2.1, Mg 1.4, AST 132, ALT 383, Alb 2.9 MEDICATIONS: Reviewed. GI: No BM noted. SKIN: No issues noted. ANTHROPOMETRICS: Wt: 68.8 kg, BMI 22.7 kg/m2, Admit wt: 68.8 kg. (no new wt since admit) ESTIMATED NEEDS: Calories: 1189-1479 kcal/day (25-30 kcal/kg BW) Protein: 69-83 g/day (1.0-1.2 g/kg BW) NUTRITION DIAGNOSIS: 1) Inadequate oral intake related to decreased ability to consume sufficient energy as evidenced by poor PO intake X 3 days.--IMPROVING 2) Chew/Swallow difficulty related to acute stroke as evidenced by need for stimulation diet.--IMPROVING INTERVENTION: 1) Diet advancement per speech therapy. 2) Will add Magic Cup on L and D trays 3) Will monitor for BM, recommend consideration of bowel meds. MONITOR/EVALUATE: PO intake, diet advance/tolerance, labs, GI, nutrition status. Follow per moderate nutrition risk guidelines.
--- NOTE | 2017-03-08 11:18 | PCM.PNORTH ---
Subjective Date of Service: Mar 08, 2017 Visit Information: Reason for Visit Left Hip Fracture Surgery/Surgery Date Post-Op Day # Date of Admission: Mar 03, 2017 at 23:20 Hospital Day #6 Subjective Patient is awake and verbal this morning. She has just had a bath. She complains of pain at the left hip with movement. She states she will be transferred to [facility] in [place]. Postop General: No Shortness of Breath, No Chest Pain Pain Management: PO, IV Push Neurological: Weakness (left lower and upper extremity) Objective Exam Objective Patient is seen sitting up in bed. She is awake, alert and answering questions. Vital Signs and I/O Vital Sign - Last Date Time Temp Pulse Resp B/P Pulse Ox O2 Delivery O2 Flow Rate FiO2 03/08/17 10:30 64 03/08/17 07:51 Supplement Oxygen 03/08/17 07:51 37.0 16 169/84 100 3.00 Intake and Output 03/07/17 03/07/17 03/08/17 Cumulative From/Thru 15:00 23:00 07:00 03/03/17 21:45 - 03/08/17 06:59 Intake Total 330 ml 2995 ml 9029 ml Output Total 1050 ml 1700 ml 9775 ml Balance -720 ml 1295 ml -746 ml Intake Oral 330 ml 250 ml 1340 ml IV Total 2745 ml 7689 ml Output Urine Total 1050 ml 1700 ml 9675 ml Emesis 100 ml # Bowel Movements 0 0 Lab & Micro Results Laboratory Tests Test 03/08/17 07:45 White Blood Count 8.0th/mm3 (3.8-10.1) Red Blood Count 3.62mil/mm3 (3.90-5.20) Hemoglobin 9.9g/dL (12.0-15.6) Hematocrit 32.2% (35.0-46.0) Mean Corpuscular Volume 89.0fL (81-100) Mean Corpuscular Hemoglobin 27.3pg (27.0-35.0) Mean Corpuscular Hemoglobin Concent 30.7% (32.0-37.0) Red Cell Distribution Width 17.9% (12.3-15.4) Platelet Count 192bil/L (150-400) Neutrophils (%) (Auto) 67.4% (40-74) Lymphocytes (%) (Auto) 12.0% (14-46) Monocytes (%) (Auto) 7.9% (4-12) Eosinophils (%) (Auto) 12.3% (0-5) Basophils (%) (Auto) 0.3% (0-3) Sodium Level 141mEq/L (134-144) Potassium Level 3.1mEq/L (3.5-5.2) Chloride Level 105mEq/L (97-108) Carbon Dioxide Level 23mmol/L (18-29) Blood Urea Nitrogen 9mg/dL (8-27) Creatinine 0.68mg/dL (0.57-1.00) Estimat Glomerular Filtration Rate 122mL/min (>59) Glucose Level 104mg/dL (60-99) Calcium Level 8.1mg/dL (8.5-10.1) Phosphorus Level 2.1mg/dL (2.5-4.9) Magnesium Level 1.4mg/dL (1.6-2.6) Total Bilirubin 0.4mg/dL (0.0-1.2) Aspartate Amino Transf (AST/SGOT) 132U/L (0-50) Alanine Aminotransferase (ALT/SGPT) 383U/L (0-32) Alkaline Phosphatase 131U/L (25-165) Total Protein 5.5g/dL (6.4-8.4) Albumin 2.9g/dL (3.4-5.0) Result Diagram: 03/08/17 0745 03/08/17 0745 Extremities: Distal Pulses Palpable, Warm, No Compartment Syndrom Noted, Tenderness/Swelling Noted (at left hip, as expected), Other (ecchymosis at left hip) Postop Sensory Motor: Movement in Toes Catheters: Urethral 2 Way Alvarado Assessment & Plan Impression Left hip fracture Problems: Plan Patient is not a candidate for orthopedic surgery for the Hip fracture until her vascular status improves. She will be transferred to [facility] in [place]. Patient is nonweightbearing on the left lower extremity. She may be bed to chair to tolerance. Orthopedic surgery will sign off for now. VTE Prophylaxis: Sub-Q Heparin (Unfractionated), SCDs, Other Resuscitation Status: CPR: Attempt Resuscitation CheshireLyla Cook PA-C Mar 08, 2017 11:18
[2017-03-08] MEDS ORDERED: Magnesium Sulf 4 Gm/100 mL H2O 4 GM in IV Premix 1 EACH IV ONE (11:50)
[2017-03-08] MEDS ORDERED: Potassium Chloride 20 mEq SR Tablet PO ONE (11:50)
[2017-03-08 12:18] VITALS: BP 120/70; PULSE 65; RESP 18; O2SAT 98
--- NOTE | 2017-03-08 13:05 | NUR ---
Call with Family Spoke her daughter, Jess, at 1110 as she had called earlier and left a message. Gave her an update and let her know that we were still waiting to hear there is a bed at [facility] for possible transfer today. Told her we would give her a call back once we knew more definite plans. Spoke with Dr. Hurd about an hour ago regarding the transfer and he said he was still trying to get a bed. Care continues.
--- NOTE | 2017-03-08 13:05 | NUR ---
Communication with Doctors [id number] - Spoke with Dr. Alanis during the multi-disciplinary rounds this morning about her lab work (Magnesium, Potassium, Phosphorus) being abnormal. He said he would look into it. Magnesium IV and oral potassium was ordered and is to be given. About 1230 - Spoke with Dr. Hurd who said to discontinue her IV fluids of normal saline at 100 mls/hour as there could be a risk of edema in her brain. Informed him that she hadn't been drinking much orally, but said we would encourage fluids to keep her from getting dehydrated. Asked if her IV could be kept open with normal saline at 10 mls/hour and he said that would be fine. He said that if her systolic blood pressure drops below 140s to page the MD. Noted that her blood pressure taken at 1218 was 120/70. 1244 - Notified Dr. Hurd about her BP. He gave a verbal order to increase her IV fluids to 100 mls/hour again which was done. Care continues.
--- NOTE | 2017-03-08 15:19 | PCM.PNMED ---
Subjective Date of Service Mar 07, 2017 Subjective Patient is at her baseline. Patient laying comfortably in bed. Speech mumbled. Left upper extremity weakness.C/o hip pain. She will be transferred to in [place]. Exam Vital Signs Vital Sign - Last Date Time Temp Pulse Resp B/P Pulse Ox O2 Delivery O2 Flow Rate FiO2 03/08/17 12:18 36.4 65 18 120/70 98 Nasal Cannula 1.00 Intake and Output 03/07/17 03/07/17 03/08/17 Cumulative From/Thru 15:00 23:00 07:00 03/03/17 21:45 - 03/08/17 06:59 Intake Total 330 ml 2995 ml 9029 ml Output Total 1050 ml 1700 ml 9775 ml Balance -720 ml 1295 ml -746 ml Intake Oral 330 ml 250 ml 1340 ml IV Total 2745 ml 7689 ml Output Urine Total 1050 ml 1700 ml 9675 ml Emesis 100 ml # Bowel Movements 0 0 Exam General: NAD, comfortably laying down on the bed Neck/HEENT: No JVD, dry mucous membranes, pink periorbital rash Heart: Regular rate and rhythm, no m/r/g/ Lungs: CTAB b/l, no wheezing Abdomen: S,ND,NT,normoactive BS+ Extremities: Warm, no edema, pulses 2/2 Neuro: Follows simple commands, asymmetric face, decreased left side nasal fold , left side visual neglect, no tongue deviation, severe weakness LUE Lab and Diagnostics Result Diagram: 03/08/17 0745 03/08/17 0745 X-Rays, CTs and MRIs CT ANGIO HEAD AND NECK IMPRESSION: 1. 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 There is reconstitution of flow in the supraclinoid segment of the right internal carotid artery presumably via retrograde flow in the right ophthalmic artery. 2. Approximately 60-70% stenosis of the origin of the left internal carotid artery. 3. Moderate, approximately 50% stenosis of the origin of the brachiocephalic artery. 4. High-grade, approximately 80% stenosis of the origin of left common carotid artery. 5. No hemodynamically significant stenosis involving the vertebrobasilar system. 6. Multiple, subacute infarcts involving the right frontal lobe, right parietal lobe, right temporal lobe, right occipital lobe, the right caudate head and the right globus pallidus. 7. No intracranial hemorrhage. 8. No significant intracranial mass effect or midline shift. Dictated and approved by: Elyssa Brizuela MD, PhD on 03/06/2017 at 17:00 MRI STROKE PROTOCOL IMPRESSION: BRAIN MRI: 1. Extensive acute cerebral infarction involving the right frontoparietal lobe, as well as posterior temporal lobe and occipital lobe. Foci of acute/subacute infarcts are also seen in the right caudate and globus pallidus. 2. A small acute infarct in the right cerebellum. 3. Multiple old infarcts in the right periventricular and deep subcortical white matter. BRAIN MR ANGIOGRAM: 1. Occlusion of the right internal carotid artery. 2. Diminished flow to the right middle cerebral artery territory compared to the contralateral left side. 3. Patent vertebrobasilar system. NECK MR ANGIOGRAM: 1. Occlusion of the right internal carotid artery 7 mm above its origin. 2. Approximately 50% stenosis in the proximal right internal carotid artery. 3. Patent vertebral arteries results significant stenosis. Dictated and approved by: Zaid De Leon M.D. on 03/05/2017 at 13:50 ADDENDUM This report includes an Addendum and supersedes previous reports for this exam. IMPRESSION: BRAIN MRI: 1. Extensive acute cerebral infarction involving the right frontoparietal lobe, as well as posterior temporal lobe and occipital lobe. Foci of acute/subacute infarcts are also seen in the right caudate and globus pallidus. 2. A small acute infarct in the right cerebellum. 3. Multiple old infarcts in the right periventricular and deep subcortical white matter. BRAIN MR ANGIOGRAM: 1. Occlusion of the right internal carotid artery. 2. Diminished flow to the right middle cerebral artery territory compared to the contralateral left side. 3. Patent vertebrobasilar system. NECK MR ANGIOGRAM: 1. Occlusion of the right internal carotid artery 7 mm above its origin. 2. Approximately 50% stenosis in the proximal left internal carotid artery. 3. Patent vertebral arteries results significant stenosis. Dictated and approved by: Zaid De Leon M.D. on 03/05/2017 at 13:50 US BILATERAL DUPLEX DOPPLER IMAGING OF THE CAROTIDS IMPRESSION: 1. On the left there is thought to be 70% plus stenosis at the origin of the internal carotid artery. 2. Probable occlusion of the internal carotid artery on the right versus possible nonvisualized thread of flow with downstream antegrade flow the right internal carotid artery. This is felt to be less likely than occlusion. Dictated and approved by: Bro Soto M.D. on 03/04/2017 at 14:56 X-RAY LEFT HIP COMPLETE IMPRESSION: Acute femoral neck fracture with displacement. Dictated and approved by: Bro Soto M.D. on 03/04/2017 at 15:16 Assessment & Plan Gail Pelaez is a 71 -year-old female with history of hypertension, hyperlipidemia, hypothyroidism and intestinal angiodysplasia who is admitted foe left hop fracture and new CVA. 1. CVA, acute, not present on admission. Active -Acute worsening of Left sided deficit, developed 03/04-03/05, strongly suggestive of new onset stroke vs poor perfusion due to relatively low BP, Repeat Carotid US 03/04 showed unchanged from prior findings--70% occ in LCA, 100%RCA, which also suggestive of possibly transient poor perfusion contributed to current s/ s. Per Record from [place], patient was admitted from07/21-08/19/16, had recurrent right frontoparietal multifocal CVA, s/p recurrent CVA in the right alex radiata and right frontal lobe, resultant left hemiparesis and neglect. Patient was recommended to stop all BP meds, recommended aspirin, patient improved subsequently, had rehab course until admission. -MR stroke revealed extensive acute cerebral infarction involving the right frontoparietal lobe, as well as posterior temporal lobe and occipital lobe and small acute infarct in the right cerebellum. There is occlusion of the right internal carotid artery and diminished flow to the right middle cerebral artery territory compared to the contralateral left side. There is also approximately 50% stenosis in the proximal right internal carotid artery. -Continued Aspirin 325 mg and Pravastatin 80 mg daily -Continued neurochecks every 1-2 hours -case discussed with surgery Dr. Lai Rogers. neurology Dr. De La Torre and at [facility] , no indication for emergent carotid endarterectomy for now per [facility] neurology . Dr Ac discussed case with intervention neurology no emergent intervention is indicated..will transfer to [facility] in [facility] coordinated care of neurology and orthopedics. she had hospitalization there for her prior stroke -Continued telemetry -Neck/head CTA with brain perfusion LICA 60-70 % stenosis,NADYA occluded 2. Left hip fracture s/p mechanical fall, present on admission. Active -surgery on hold due to acute stroke -transfer to [facility] for coordinated care 3. Transaminitis, acute, not present on admission. Active -Etiology unknown -DC Tylenol -Dilaudid PRN -Monitor labs -Abdominal US if not improved 4. Hypertension, present on admission. Active -Hold off BP meds to increase perfusion. Chronic, stable HLD CKD anemia hemochromatosis hx of Crohn's dz, AVM of SB, angiodysplasia, pt did have colonoscopy due to GIB , underwent Argon laser tx at last hospitalization, monitor stools, h/h closely Rt carotid occ chronic back pain osteoporosis depression Contact: Jess Pelaez, GI Prophylaxis: Proton Pump Inhibitor VTE Prophylaxis: Sub-Q Heparin (Unfractionated), SCDs, Other Resuscitation Status: CPR: Attempt Resuscitation Time spent 35 minutes Attending Statement patient seen with house staff.I agree with the discharge summary Alivia Batista DO Mar 08, 2017 15:19 Chase Hurd MD Mar 10, 2017 20:34
--- NOTE | 2017-03-08 15:36 | NUR ---
Transfer to [facility] She left via BLS transport at 1510 to go to [facility]. Gave paperwork packet and a brief report to the medics. Confirmed with Dr. Hurd that she could be transported via BLS off of telemetry, saline locked, on 2L of O2. All her belongings were given to EMS to take with her. She had about 2 hours left on her Magnesium rider, but Dr. Hurd said to give as much as possible until transport where she could be saline locked. Gave 1 mg of Dilaudid IV just before transport. Tried calling multiple numbers at 1530 to get a hold of the nurse. Called the main switchboard which transferred me to the unit. Lisseth the RN at [facility] said she couldn't take a [id number] report right now and asked if she could call back in 10 minutes. Gave her the CCU unit number. Addendum: 03/08/17 at 1601 by CINDY SIEGEL RN Just spoke to Lisseth on the phone and gave her a detailed report. Addendum: 03/08/17 at 1808 by CINDY SIEGEL RN Per nursing transmitter supervisor she was going to be transferred to [place] [id number].
== END 2017-03-08 15:11 | DRG 535 ==
LOC: EDBD 21:40 → EDUNIT# 21:40 → SED 21:40 → OSC 23:20 → PCC 03-05 22:17
PROVIDERS: ADMIT Family Medicine; ATTEND Family Medicine
DX: S72.002A Fracture of unspecified part of neck of left femur, initial encounter for closed fracture (principal); I63.9 Cerebral infarction, unspecified; I69.354 Hemiplegia and hemiparesis following cerebral infarction affecting left non-dominant side; Z53.09 Procedure and treatment not carried out because of other contraindication; I65.23 Occlusion and stenosis of bilateral carotid arteries; R74.0 Nonspecific elevation of levels of transaminase and lactic acid dehydrogenase [LDH]; I10 Essential (primary) hypertension; G89.29 Other chronic pain; W01.198A Fall on same level from slipping, tripping and stumbling with subsequent striking against other object, initial encounter; R21 Rash and other nonspecific skin eruption; E78.5 Hyperlipidemia, unspecified; F17.200 Nicotine dependence, unspecified, uncomplicated; E03.9 Hypothyroidism, unspecified; Y92.019 Unspecified place in single-family (private) house as the place of occurrence of the external cause